=== PATIENT | female | born 1945 | race Caucasian/White ===

== ENCOUNTER 2017-08-20 05:49 | Emergency (ER) | payer MEDICARE, BC ==
[2017-08-20 05:59] VITALS: BP 136/86
--- NOTE | 2017-08-20 06:27 | EDM.PDOC ---
ED HPI GENERAL MEDICAL PROBLEM - General Chief Complaint: ENT Problem Stated Complaint: nose bleed Time Seen by Provider: 08/20/17 06:05 Source of Information: Reports: Patient History Limitations: Reports: No Limitations - History of Present Illness INITIAL COMMENTS - FREE TEXT/NARRATIVE: States that her INR has been high for several days and was into Dr. Trotter and had meds changed. This evening about 9 pm she started having a left sided Onset Date: 08/19/17 Onset Time: 21:00 Location: Reports: Other (left nare) Nose Pain Score (Numeric/FACES): 4 - Related Data Allergies Allergy/AdvReac Type Severity Reaction Status Date / Time celecoxib [From Celebrex] Allergy Hives Verified 08/20/17 05:50 Home Meds: Home Meds Aspirin [Ecotrin] 81 mg PO DAILY 12/02/15 [History] Cholecalciferol (Vitamin D3) [Vitamin D3] 3,000 unit PO DAILY 12/02/15 [History] Citalopram Hydrobromide [Citalopram HBr] 20 mg PO DAILY 12/02/15 [History] Digoxin [Digox] 125 mcg PO DAILY 12/02/15 [History] Ferrous Sulfate 1 tab PO DAILY 12/02/15 [History] Fish Oil/[place]-3 Fatty Acids [Fish Oil 1,000 MG] 1,000 mg PO BEDTIME 12/02/15 [ History] Furosemide 80 mg PO BID 12/02/15 [History] Insulin Detemir [Levemir] 10 units SUBCUT BEDTIME 12/02/15 [History] Isosorbide Mononitrate [Isosorbide Mononitrate ER] 30 mg PO DAILY 12/02/15 [ History] Levothyroxine Sodium [Synthroid] 175 mcg PO DAILY 12/02/15 [History] Lisinopril [Zestril] 20 mg PO BID 12/02/15 [History] Lovastatin 20 mg PO DAILY 12/02/15 [History] Magnesium 400 mg PO DAILY 12/02/15 [History] Multivit-Min/FA/Lycopene/Lut [Centrum Silver Tablet] 1 tab PO DAILY 12/02/15 [ History] Vitamin B Complex 1 tab PO DAILY 12/02/15 [History] Warfarin [Coumadin] 5 mg PO MOWEFR 12/02/15 [History] ALPRAZolam [Xanax] 0.25 mg PO BID PRN 08/20/17 [History] Warfarin Sodium 2.5 mg PO SUTUTHSA 08/20/17 [History] Past Medical History HEENT History: Reports: Cataract Cardiovascular History: Reports: Afib, Heart Failure, High Cholesterol, Hypertension, Pacemaker Other Cardiovascular History: says she had a pacemaker inserted about 4 years ago; was supposed to have hip surgery, but had to "work on her heart." Knew she had a leaky valve, time to get that "fixed." Since surgery, incision healing, some incision pain when coughing; had collapsed lung right after surgery; has lost weight this year; is tired walking around the house; appetit OK; saw Dr. Trotter on 01-31-16 and 02-06 for followup; said she has a cough, clear or yellow sputum, had this before surgery Respiratory History: Reports: Asthma, SOB Gastrointestinal History: Reports: Chronic Constipation, GERD Genitourinary History: Reports: Other (See Below) Other Genitourinary History: nocturia, fibrocystic breast disease Musculoskeletal History: Reports: Arthritis, Gout, RA, Other (See Below) Other Musculoskeletal History: history of bursitis to left knee and right hip, sacroilitis, osteopenia Neurological History: Reports: Vertigo Psychiatric History: Reports: Depression Endocrine/Metabolic History: Reports: Diabetes, Type II Other Endocrine/Metabolic History: says her A1C is 5.6, diabetes doing well. h/ o thyroid CA Hematologic History: Reports: Other (See Below) Other Hematologic History: vitamin d deficiency Dermatologic History: Reports: Other (See Below) Other Dermatologic History: atypical nevus - Past Surgical History Female Surgical History: Reports: Section, Hysterectomy Social & Family History - Tobacco Use Smoking Status *Q: Former Smoker - Recreational Drug Use Recreational Drug Use: No - Living Situation & Occupation Living situation: Reports: , with Spouse Occupation: Retired ED ROS ENT - Review of Systems Review Of Systems: See Below Constitutional: Reports: No Symptoms HEENT: Reports: Nosebleed Respiratory: Reports: No Symptoms Cardiovascular: Reports: No Symptoms GI/Abdominal: Reports: No Symptoms ED EXAM, ENT - Physical Exam Exam: See Below Exam Limited By: No Limitations General Appearance: Alert, WD/WN, No Apparent Distress Ears: Normal External Exam, Normal Canal, Normal TMs Nose: Active Bleeding (left nare. Some blood noted posterior pharynx. ) Mouth/Throat: Bleeding (from nare bleeding posteriorly) Head: Atraumatic Neck: Normal Inspection, Supple Respiratory/Chest: No Respiratory Distress, Lungs Clear Cardiovascular: No Edema GI/Abdominal: Normal Bowel Sounds, Soft, Non-Tender Course - Vital Signs Last Recorded V/S: Last Vital Signs Temp 96.9 F 08/20/17 05:57 Pulse 87 08/20/17 05:57 Resp 20 08/20/17 05:57 BP 136/86 08/20/17 05:57 Pulse Ox 98 08/20/17 05:57 - Orders/Labs/Meds Labs: Laboratory Tests 08/20/17 08/20/17 Range/Units 06:25 06:25 WBC 8.7 (5.0-10.0) 10^3/uL RBC 4.26 (4.00-5.50) 10^6/uL Hgb 13.6 (12.0-16.0) g/dL Hct 41.1 (37.0-47.0) % MCV 96.5 H (82.0-94.0) fL MCH 31.9 (27.0-32.0) pg MCHC 33.1 (33.0-38.0) g/dL RDW Coeff of Viky 13.9 (11.0-15.0) % Plt Count 279 (150-400) 10^3/uL Neut % (Auto) 63.3 (35-85) % Lymph % (Auto) 28.1 (10-55) % [place] % (Auto) 5.8 (0-16) % Eos % (Auto) 2.6 (0-5) % Baso % (Auto) 0.2 (0-3) % Neut # (Auto) 5.52 (1.80-7.00) 10^3/uL Lymph # (Auto) 2.46 (1.00-4.80) 10^3/uL [place] # (Auto) 0.51 (0.00-0.80) 10^3/uL Eos # (Auto) 0.23 (0.00-0.45) 10^3/uL Baso # (Auto) 0.02 10^3/uL PT 24.8 H (9.7-12.3) SEC INR 2.56 H (0.92-1.18) Meds: Medications Discontinued Medications Generic Name Dose Route Start Last Admin Trade Name Nii PRN Reason Stop Dose Admin Oxymetazoline HCl 1 ml 08/20/17 08:02 08/20/17 08:06 Afrin Original 0.05% Nasal [place] JANENE 08/20/17 08:03 1 ml ONETIME ONE Administration - Re-Assessments/Exams Free Text/Narrative Re-Assessment/Exam: 08/20/17 06:28 Nasal tampon inserted into the left nare without any difficulty. 08/20/17 07:20 Nasal tampon removed as it continues to bleed through. Left nare sprayed with afrin and then 2 ml of adrenal sprayed into the left nostril. 1 inch packing inserted as tight as possible. Will continue to monitor. 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 Can make appt with Dr Trotter for Wednesday to have removed. Return sooner if bleeding returns. - Problem List & Annotations (1) Epistaxis SNOMED Code(s): 442781432 Code(s): R04.0 - EPISTAXIS Status: Acute Priority: High (2) Hypercoagulability due to heart valve disorder SNOMED Code(s): 10608701, 80168819 Code(s): D68.69 - OTHER THROMBOPHILIA Status: Acute Priority: High - Problem List Review Problem List Initiated/Reviewed/Updated: Yes
[2017-08-20] MEDS ORDERED: Oxymetazoline 0.05% Nasal Spray 15 ML Bottle NAS ONE (08:02)
== END 2017-08-20 08:18 | disposition home or self-care (01) ==
LOC: CC.ED 05:49
DX: R04.0 Epistaxis (principal); I38 Endocarditis, valve unspecified; D68.69 Other thrombophilia; I11.0 Hypertensive heart disease with heart failure; E78.00 Pure hypercholesterolemia, unspecified; I50.9 Heart failure, unspecified; E11.9 Type 2 diabetes mellitus without complications; Z88.8 Allergy status to other drugs, medicaments and biological substances; Z79.82 Long term (current) use of aspirin; Z79.899 Other long term (current) drug therapy; Z79.4 Long term (current) use of insulin; Z87.891 Personal history of nicotine dependence
CPT/HCPCS: 36415; 85025; 85610; 99283

== ENCOUNTER 2018-08-31 01:20 | Emergency (ER) | payer MEDICARE, BC ==
[2018-08-31 01:51] VITALS: BP 131/86
--- NOTE | 2018-08-31 02:27 | EDM.PDOC ---
ED HPI GENERAL MEDICAL PROBLEM - General Chief Complaint: Respiratory Problem Stated Complaint: asthma Time Seen by Provider: 08/31/18 02:04 Source of Information: Reports: Patient History Limitations: Reports: No Limitations - History of Present Illness INITIAL COMMENTS - FREE TEXT/NARRATIVE: Paulette is a 73 yr old female who presents to the ED via private vehicle with complaints of shortness of breath. States she was laying in bed around 11:30 this evening when she states it felt like she couldn't get any air. She denied any chest pain or palpitations in her chest. Admits it lasted until she got to [place] but has since subsided. She states this happened to her about a week ago and was seen in the clinic by Dina Benjamin PA-C who is her primary provider. Dina set her up with Dr. Townsend, prop setter, in [place] who told her she doesn' t think it is her heart. She states she wore a Holter monitor for 24 hours and mailed it back but hasn't found out any results of it. She admits she is on Coumadin for atrial fibrillation, valve replacement with history of bypass and a pacemaker as well. She was recently started on Xanax for anxiety. Currently she denies any symptoms. States she has a history of asthma and used to use an inhaler but hasn't for years. Has never been a smoker, tried it for a couple months at the age of 22 but quit d/t cost. Onset Date: 08/30/18 Onset Time: 23:30 Duration: Resolved Prior to Arrival Location: Reports: Chest, Generalized - Related Data Allergies Allergy/AdvReac Type Severity Reaction Status Date / Time celecoxib [From Celebrex] Allergy Hives Verified 08/31/18 01:31 Home Meds: Home Meds Aspirin [Ecotrin] 81 mg PO DAILY 12/02/15 [History] Cholecalciferol (Vitamin D3) [Vitamin D3] 3,000 unit PO DAILY 12/02/15 [History] Citalopram Hydrobromide [Citalopram HBr] 20 mg PO DAILY 12/02/15 [History] Digoxin [Digox] 125 mcg PO DAILY 12/02/15 [History] Ferrous Sulfate 1 tab PO DAILY 12/02/15 [History] Fish Oil/[place]-3 Fatty Acids [Fish Oil 1,000 MG] 2,000 mg PO BEDTIME 12/02/15 [ History] Furosemide 80 mg PO DAILY 12/02/15 [History] Insulin Detemir [Levemir] 10 units SUBCUT BEDTIME 12/02/15 [History] Isosorbide Mononitrate [Isosorbide Mononitrate ER] 30 mg PO DAILY 12/02/15 [ History] Levothyroxine Sodium [Synthroid] 175 mcg PO DAILY 12/02/15 [History] Lisinopril [Zestril] 20 mg PO BID 12/02/15 [History] Lovastatin 20 mg PO DAILY 12/02/15 [History] Magnesium 400 mg PO DAILY 12/02/15 [History] Multivit-Min/FA/Lycopene/Lut [Centrum Silver Tablet] 1 tab PO DAILY 12/02/15 [ History] Vitamin B Complex 1 tab PO DAILY 12/02/15 [History] Warfarin [Coumadin] 5 mg PO BECK 12/02/15 [History] ALPRAZolam [Xanax] 0.25 mg PO BID PRN 08/20/17 [History] Warfarin Sodium 7.5 mg PO MOTUWETHFRSA 08/20/17 [History] Past Medical History HEENT History: Reports: Cataract Cardiovascular History: Reports: Afib, Bypass, Heart Failure, Heart Valve Replacement, High Cholesterol, Hypertension, Pacemaker Other Cardiovascular History: says she had a pacemaker inserted about 4 years ago; was supposed to have hip surgery, but had to "work on her heart." Knew she had a leaky valve, time to get that "fixed." Since surgery, incision healing, some incision pain when coughing; had collapsed lung right after surgery; has lost weight this year; is tired walking around the house; appetit OK; saw Dr. 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: Musculoskeletal History: Reports: Arthritis, Gout, RA, Other (See Below) Other Musculoskeletal History: history of bursitis to left knee and right hip, sacroilitis, osteopenia Neurological History: Reports: Vertigo Psychiatric History: Reports: Depression Endocrine/Metabolic History: Reports: Diabetes, Type II, Other (See Below) Other Endocrine/Metabolic History: THYROID CA; THYROID REMOVED Hematologic History: Reports: Other (See Below) Other Hematologic History: vitamin d deficiency Oncologic (Cancer) History: Reports: Thyroid Dermatologic History: Reports: Other (See Below) Other Dermatologic History: atypical nevus - Past Surgical History Cardiovascular Surgical History: Reports: Coronary Artery Bypass, Pacer, Valve Replacement GI Surgical History: Reports: Appendectomy, Cholecystectomy Female Surgical History: Reports: Section, Hysterectomy Musculoskeletal Surgical History: Reports: Hip Replacement Other Musculoskeletal Surgeries/Procedures:: r) HIP Oncologic Surgical History: Reports: None Social & Family History - Family History Family Medical History: Noncontributory - Tobacco Use Smoking Status *Q: Former Smoker Used Tobacco, but Quit: Yes Month/Year Tobacco Last Used: 40 YEARS - Caffeine Use Caffeine Use: Reports: Coffee - Recreational Drug Use Recreational Drug Use: No - Living Situation & Occupation Living situation: Reports: , with Spouse Occupation: Retired ED ROS GENERAL - Review of Systems Review Of Systems: See Below Constitutional: Denies: Fever, Chills, Weakness HEENT: Reports: No Symptoms Respiratory: Reports: Shortness of Breath (resolved). Denies: Wheezing, Pleuritic Chest Pain, Cough Cardiovascular: Reports: Edema (right ankle from prior ankle fracture), Lightheadedness, Orthopnea. Denies: Chest Pain, Dyspnea on Exertion, Palpitations GI/Abdominal: Reports: No Symptoms : Reports: No Symptoms Musculoskeletal: Reports: No Symptoms Skin: Reports: No Symptoms Neurological: Reports: No Symptoms Psychiatric: Reports: Anxiety Hematologic/Lymphatic: Reports: Easy Bleeding (on Coumadin) ED EXAM, GENERAL - Physical Exam Exam: See Below Exam Limited By: No Limitations General Appearance: Alert, No Apparent Distress (sitting comfortably having normal conversation.) Ears: Normal External Exam, Normal Canal, Hearing Grossly Normal, Normal TMs Nose: Normal Inspection, Normal Mucosa, No Blood Throat/Mouth: Normal Inspection, Normal Lips, Normal Gums, Normal Oropharynx, Normal Voice, No Airway Compromise Head: Atraumatic, Normocephalic Neck: Normal Inspection, Supple Respiratory/Chest: No Respiratory Distress, Lungs Clear, No Accessory Muscle Use , Chest Non-Tender Cardiovascular: No Murmur, Irregularly Irregular Peripheral Pulses: 2+: Dorsalis Pedis (L), Dorsalis Pedis (R) GI/Abdominal: Normal Bowel Sounds, Soft, Non-Tender, No Distention, No Mass Extremities: Pedal Edema (trace pitting right lower extremity, pt states it has been that way since ankle fracture) Neurological: Alert, Oriented, Normal Cognition, No Motor/Sensory Deficits Psychiatric: Normal Affect, Normal Mood Skin Exam: Warm, Dry, Intact, Normal Color, No Rash EKG INTERPRETATION EKG Date: 08/31/18 Rhythm: A-Fib Rate (Beats/Min): 96 (paced) ST-T: Normal Comparison: NA - No Prior EKG Course - Vital Signs Last Recorded V/S: Last Vital Signs Temp 97.1 F 08/31/18 01:29 Pulse 87 08/31/18 02:38 Resp 20 08/31/18 02:38 BP 131/86 08/31/18 01:51 Pulse Ox 96 08/31/18 02:38 - Orders/Labs/Meds Orders: Active Orders 24 hr Category Date Time Status EKG Documentation Completion [RC] STAT Care 08/31/18 01:24 Active Chest 2V [CR] Stat Exams 08/31/18 01:49 Ordered Labs: Laboratory Tests 08/31/18 08/31/18 08/31/18 Range/Units 01:58 01:58 01:58 WBC 6.3 (5.0-10.0) 10^3/uL RBC 4.28 (4.00-5.50) 10^6/uL Hgb 14.4 (12.0-16.0) g/dL Hct 42.5 (37.0-47.0) % MCV 99.3 H (82.0-94.0) fL MCH 33.6 H (27.0-32.0) pg MCHC 33.9 (33.0-38.0) g/dL RDW Coeff of [place] 13.9 (11.0-15.0) % Plt Count 291 (150-400) 10^3/uL Neut % (Auto) 53.8 (35-85) % Lymph % (Auto) 36.4 (10-55) % [place] % (Auto) 6.2 (0-16) % Eos % (Auto) 3.3 (0-5) % Baso % (Auto) 0.3 (0-3) % Neut # (Auto) 3.37 (1.80-7.00) 10^3/uL Lymph # (Auto) 2.28 (1.00-4.80) 10^3/uL [place] # (Auto) 0.39 (0.00-0.80) 10^3/uL Eos # (Auto) 0.21 (0.00-0.45) 10^3/uL Baso # (Auto) 0.02 10^3/uL PT 33.5 H (9.7-12.3) SEC INR 3.49 H (0.92-1.18) D-Dimer, Quantitative 0.88 H (0.00-0.50) Sodium 144 (136-145) mEq/L Potassium 3.9 (3.5-5.0) mEq/L Chloride 107 H (98-106) mEq/L Carbon Dioxide 27 (21-32) mmol/L BUN 29 H (7-18) mg/dL Creatinine 1.2 H (0.6-1.0) mg/dL Est Cr Clr Drug Dosing 39.67 mL/min Estimated GFR (MDRD) 44 L (>=60) mL/min Glucose 119 H (75-99) mg/dL Calcium 9.6 (8.4-10.1) mg/dL Total Bilirubin 0.8 (0.0-1.0) mg/dL AST 31 (15-37) U/L ALT 34 (12-78) U/L Alkaline Phosphatase 68 (46-116) U/L Creatine Kinase 63 (21-215) U/L Troponin I 0.065 H (0.00-0.06) ng/mL C-Reactive Protein 0.2 (0.2-0.8) mg/dL Total Protein 6.2 L (6.4-8.2) g/dL Albumin 3.3 L (3.4-5.0) g/dL Departure - Departure Time of Disposition: 03:08 Disposition: Home, Self-Care 01 Clinical Impression: Shortness of breath at rest, Anticoagulation goal of INR 2.5 to 3.5 Congestive heart failure Qualifiers: Heart failure type: unspecified Heart failure chronicity: unspecified Qualified Code(s): I50.9 - Heart failure, unspecified - Discharge Information Instructions: Shortness of Breath, Adult, [id number] Forms: ED Department Discharge Additional Instructions: 1) Recommend sleeping with bed slightly elevated. 2) If shortness of breath returns or any concerns at all, recommend reevaluation and returning to the ER. 3) May call with any questions or concerns to [phone]. 4) Recommend follow up in clinic with Dina Benjamin tomorrow or afternoon for recheck... Call [phone] to schedule appointment. 5) Continue taking all medications as you normally would. - Problem List & Annotations (1) Anticoagulation goal of INR 2.5 to 3.5 SNOMED Code(s): 61301621 Code(s): Z51.81 - ENCOUNTER FOR THERAPEUTIC DRUG LEVEL MONITORING; Z79.01 - CARE HOME (CURRENT) USE OF ANTICOAGULANTS Status: Acute Current Visit: Yes (2) Congestive heart failure SNOMED Code(s): 67157911 Code(s): I50.9 - HEART FAILURE, UNSPECIFIED Status: Acute Current Visit: Yes Qualifiers: Heart failure type: unspecified Heart failure chronicity: unspecified Qualified Code(s): I50.9 - Heart failure, unspecified (3) Shortness of breath at rest SNOMED Code(s): 145589255 Code(s): R06.02 - SHORTNESS OF BREATH Status: Resolved Current Visit: Yes - My Orders Last 24 Hours: My Active Orders 08/31/18 01:24 EKG Documentation Completion [RC] STAT 08/31/18 01:49 Chest 2V [CR] Stat - Assessment/Plan Last 24 Hours: My Active Orders 08/31/18 01:24 EKG Documentation Completion [RC] STAT 08/31/18 01:49 Chest 2V [CR] Stat Plan: Chest x-ray showed enlarged heart and compared to prior from 2016 and appears to be comparable. EKG showed atrial fibrillation. Labs showed mildly elevated d- dimer at 0.88 with last done in 2017 and was 0.67 at that time. Troponoin 0.065. INR is therapeutic at 3.49. I discussed into detail asthma, which I explained is not likely as lungs are clear, slightly diminished in left lower lobe. I explained to both Paulette and her son, Helio, that it appears she does have heart failure, which was evident back in 2016 as well, likely chronic. I discussed mildly elevated d-dimer with an INR of 3.49. Likely not a PE; however , unable to determine without CTA of the chest. After long discussion with both it was decided to not undergo the CTA of the chest as it is likely nothing else would be done as she is already on anticoagulation and therapeutic. Offered to Paulette and her son to keep her in house under observation overnight with repeat cardiac enzymes, pro-BNP in the morning. She elected to go home instead. She verbalized understanding of all the risks as well as her son. We will discharge home at this time. I did advise if shortness of breath returns or has any chest discomfort, recommended returning immediately to ED. Will have her follow up with Dina Benjamin to discuss heart failure. Paulette was ambulated and didn't appear to be in any distress while in ED.
== END 2018-08-31 03:30 | disposition home or self-care (01) ==
LOC: CC.ED 01:20
DX: I11.0 Hypertensive heart disease with heart failure (principal); I50.9 Heart failure, unspecified; E11.9 Type 2 diabetes mellitus without complications; Z88.8 Allergy status to other drugs, medicaments and biological substances; Z79.82 Long term (current) use of aspirin; Z79.899 Other long term (current) drug therapy; Z87.891 Personal history of nicotine dependence
CPT/HCPCS: 36415; 71046; 80053; 82550; 84484; 85025; 85379; 85610; 86140; 93005; 99285-25

== ENCOUNTER 2019-03-26 09:05 | Inpatient (IN) | payer MEDICARE, BC ==
--- NOTE | 2019-03-26 09:40 | EDM.PDOC ---
ED HPI GENERAL MEDICAL PROBLEM - General Chief Complaint: Respiratory Problem Stated Complaint: TROUBLE BREATHING Time Seen by Provider: 03/26/19 09:23 Source of Information: Reports: Patient History Limitations: Reports: No Limitations - History of Present Illness INITIAL COMMENTS - FREE TEXT/NARRATIVE: This patient is a 74 year old female that presents to the ER. Patient report that for the past 2 days she has had an increase in shortness of breath and BLE edema. Patient reports that she has a history of CHF. Patient reports that she was seen in clinic on Wednesday and was recommended admission but patient refused. Patient reports that since yesterday she has been getting on and off sharp chest pain upper left chest. She reports it last a few seconds, it began yesterday. She reports she had pain when she arrived, but is currently pain free 0/10. Patient reports she always sleeps in a recliner at night. Onset Date: 03/24/19 Duration: Day(s): (2) Severity: Moderate Improves with: Reports: None Worsens with: Reports: None Associated Symptoms: Reports: Chest Pain, Cough, Shortness of Breath. Denies: cough w sputum, Diaphoresis, Fever/Chills, Headaches, Loss of Appetite, Malaise , Nausea/Vomiting, Rash, Seizure, Syncope, Weakness Left Chest Pain Score (Numeric/FACES): 9 - Related Data Allergies Allergy/AdvReac Type Severity Reaction Status Date / Time celecoxib [From Celebrex] Allergy Hives Verified 09/08/18 08:55 Home Meds: Home Meds Aspirin [Ecotrin EC] 81 mg PO DAILY 12/02/15 [History] Cholecalciferol (Vitamin D3) [Vitamin D3] 3,000 unit PO DAILY 12/02/15 [History] Citalopram Hydrobromide [Citalopram HBr] 40 mg PO DAILY 12/02/15 [History] Ferrous Sulfate 1 tab PO DAILY 12/02/15 [History] Fish Oil/[place]-3 Fatty Acids [Fish Oil 1,000 MG] 2,000 mg PO BEDTIME 12/02/15 [ History] Furosemide 80 mg PO QAM 12/02/15 [History] Levothyroxine Sodium [Synthroid] 200 mcg PO DAILY 12/02/15 [History] Lisinopril [Zestril] 20 mg PO DAILY 12/02/15 [History] Lovastatin 20 mg PO DAILY 12/02/15 [History] Magnesium 500 mg PO DAILY 12/02/15 [History] Multivit-Min/FA/Lycopene/Lut [Centrum Silver Tablet] 1 tab PO DAILY 12/02/15 [ History] Vitamin B Complex 1 tab PO DAILY 12/02/15 [History] Warfarin [Coumadin] 5 mg PO SUTUTHSA 12/02/15 [History] ALPRAZolam [Xanax] 0.25 mg PO BID PRN 08/20/17 [History] Warfarin Sodium 7.5 mg PO MOWEFR 08/20/17 [History] Acetaminophen [Tylenol Extra Strength] 1 mg PO ASDIRECTED 09/08/18 [History] Metoprolol Succinate 50 mg PO DAILY 09/08/18 [History] Furosemide 40 mg PO 1700 03/26/19 [History] Past Medical History HEENT History: Reports: Cataract Cardiovascular History: Reports: Afib, Bypass, Heart Failure, Heart Valve Replacement, High Cholesterol, Hypertension, Pacemaker Other Cardiovascular History: says she had a pacemaker inserted about 4 years ago; was supposed to have hip surgery, but had to "work on her heart." Knew she had a leaky valve, time to get that "fixed." Since surgery, incision healing, some incision pain when coughing; had collapsed lung right after surgery; has lost weight this year; is tired walking around the house; appetit OK; saw Dr. Trotter on 01-31-16 and 02-06 for followup; said she has a cough, clear or yellow sputum, had this before surgery Respiratory History: Reports: Asthma, SOB Gastrointestinal History: Reports: Chronic Constipation, GERD Genitourinary History: Reports: Other (See Below) Other Genitourinary History: nocturia, fibrocystic breast disease [employer] History: Reports: Musculoskeletal History: Reports: Arthritis, Gout, RA, Other (See Below) Other Musculoskeletal History: history of bursitis to left knee and right hip, sacroilitis, osteopenia Neurological History: Reports: Vertigo Psychiatric History: Reports: Depression Endocrine/Metabolic History: Reports: Diabetes, Type II, Other (See Below) Other Endocrine/Metabolic History: THYROID CA; THYROID REMOVED Hematologic History: Reports: Other (See Below) Other Hematologic History: vitamin d deficiency Oncologic (Cancer) History: Reports: Thyroid Dermatologic History: Reports: Other (See Below) Other Dermatologic History: atypical nevus - Past Surgical History Cardiovascular Surgical History: Reports: Coronary Artery Bypass, Pacer, Valve Replacement GI Surgical History: Reports: Appendectomy, Cholecystectomy Female Surgical History: Reports: Section, Hysterectomy Musculoskeletal Surgical History: Reports: Hip Replacement Other Musculoskeletal Surgeries/Procedures:: r) HIP Oncologic Surgical History: Reports: None Social & Family History - Family History Family Medical History: Noncontributory - Caffeine Use Caffeine Use: Reports: Coffee - Living Situation & Occupation Living situation: Reports: , with Spouse Occupation: Retired ED ROS GENERAL - Review of Systems Review Of Systems: See Below Constitutional: Reports: No Symptoms HEENT: Reports: No Symptoms Respiratory: Reports: Shortness of Breath, Cough. Denies: Wheezing, Pleuritic Chest Pain, Sputum, Hemoptysis Cardiovascular: Reports: Chest Pain, Edema Endocrine: Reports: No Symptoms GI/Abdominal: Denies: Abdominal Pain, Diarrhea, Nausea, Vomiting : Reports: No Symptoms Musculoskeletal: Reports: No Symptoms Skin: Reports: No Symptoms Neurological: Reports: No Symptoms Psychiatric: Reports: No Symptoms Hematologic/Lymphatic: Reports: No Symptoms Immunologic: Reports: No Symptoms ED EXAM, GENERAL - Physical Exam Exam: See Below Exam Limited By: No Limitations General Appearance: Alert, WD/WN, No Apparent Distress, Anxious, Obese Eye Exam: Bilateral Eye: Normal Inspection, PERRL Ears: Normal External Exam, Normal Canal, Hearing Grossly Normal, Normal TMs Ear Exam: Bilateral Ear: Auricle Normal, Canal Normal, TM normal Nose: Normal Inspection, Normal Mucosa, No Blood Throat/Mouth: Normal Inspection, Normal Lips, Normal Teeth, Normal Gums, Normal Oropharynx, Normal Voice, No Airway Compromise Head: Atraumatic, Normocephalic Neck: Normal Inspection, Supple, Non-Tender, Full Range of Motion Respiratory/Chest: No Respiratory Distress, Lungs Clear, Normal Breath Sounds, No Accessory Muscle Use, Chest Non-Tender Cardiovascular: Normal Peripheral Pulses, Regular Rate, Rhythm, No JVD, No Murmur, No Rub, Other (Pacemaker) Peripheral Pulses: 2+: Radial (L), Radial (R), Posterior Tibial (L), Posterior Tibial (R), Dorsalis Pedis (L), Dorsalis Pedis (R) GI/Abdominal: Normal Bowel Sounds, Soft, Non-Tender, No Abnormal Bruit (Female) Exam: Deferred Rectal (Female) Exam: Deferred Back Exam: Normal Inspection, Full Range of Motion Extremities: Normal Inspection, Normal Range of Motion, Non-Tender, Normal Capillary Refill, Pedal Edema (+3 BLE) Neurological: Alert, Oriented, Normal Cognition, No Motor/Sensory Deficits Psychiatric: Normal Affect, Normal Mood Skin Exam: Warm, Dry, Normal Color, No Rash, Wound/Incision (BLE small scrapes and wounds from dogs per patient. No surrounding redness, drainage, or evidence of infection.) EKG INTERPRETATION EKG Date: 03/26/19 Time: 10:15 Rate (Beats/Min): 92 Comparison: No Change EKG Interpretation Comments: PACED Course - Vital Signs Last Recorded V/S: Last Vital Signs Temp 98.5 F 03/26/19 09:06 Pulse 89 03/26/19 09:06 Resp 16 03/26/19 09:06 BP 102/73 03/26/19 09:06 Pulse Ox 95 03/26/19 09:06 - Orders/Labs/Meds Orders: Active Orders 24 hr Category Date Time Status Chest 2V [CR] Stat Exams 03/26/19 09:30 Taken Labs: Laboratory Tests 03/26/19 03/26/19 03/26/19 Range/Units 09:25 09:25 09:25 WBC 5.2 (5.0-10.0) 10^3/uL RBC 3.84 L (4.00-5.50) 10^6/uL Hgb 13.1 (12.0-16.0) g/dL Hct 39.6 (37.0-47.0) % MCV 103.1 H (82.0-94.0) fL MCH 34.1 H (27.0-32.0) pg MCHC 33.1 (33.0-38.0) g/dL RDW Coeff of Viky 16.5 H (11.0-15.0) % Plt Count 253 (150-400) 10^3/uL Neut % (Auto) 64.1 (35-85) % Lymph % (Auto) 23.9 (10-55) % [place] % (Auto) 7.3 (0-16) % Eos % (Auto) 4.1 (0-5) % Baso % (Auto) 0.6 (0-3) % Neut # (Auto) 3.32 (1.80-7.00) 10^3/uL Lymph # (Auto) 1.24 (1.00-4.80) 10^3/uL [place] # (Auto) 0.38 (0.00-0.80) 10^3/uL Eos # (Auto) 0.21 (0.00-0.45) 10^3/uL Baso # (Auto) 0.03 10^3/uL PT 16.9 H (9.7-12.3) SEC INR 1.69 H (0.92-1.18) Sodium 142 (136-145) mEq/L Potassium 4.5 (3.5-5.0) mEq/L Chloride 104 (98-106) mEq/L Carbon Dioxide 29 (21-32) mmol/L BUN 32 H (7-18) mg/dL Creatinine 1.6 H (0.6-1.0) mg/dL Est Cr Clr Drug Dosing TNP Estimated GFR (MDRD) 32 L (>=60) mL/min Glucose 108 H (75-99) mg/dL Calcium 9.3 (8.4-10.1) mg/dL Total Bilirubin 1.1 H (0.0-1.0) mg/dL AST 30 (15-37) U/L ALT 21 (12-78) U/L Alkaline Phosphatase 71 (46-116) U/L Lactate Dehydrogenase 244 H (100-190) U/L Creatine Kinase 53 (21-215) U/L Troponin I 0.111 H (0.00-0.06) ng/mL NT-Pro-B Natriuret Pep 97014 H (0-1000) pg/mL Total Protein 6.9 (6.4-8.2) g/dL Albumin 3.2 L (3.4-5.0) g/dL 03/26/19 Range/Units 12:10 WBC (5.0-10.0) 10^3/uL RBC (4.00-5.50) 10^6/uL Hgb (12.0-16.0) g/dL Hct (37.0-47.0) % MCV (82.0-94.0) fL MCH (27.0-32.0) pg MCHC (33.0-38.0) g/dL RDW Coeff of Viky (11.0-15.0) % Plt Count (150-400) 10^3/uL Neut % (Auto) (35-85) % Lymph % (Auto) (10-55) % [place] % (Auto) (0-16) % Eos % (Auto) (0-5) % Baso % (Auto) (0-3) % Neut # (Auto) (1.80-7.00) 10^3/uL Lymph # (Auto) (1.00-4.80) 10^3/uL [place] # (Auto) (0.00-0.80) 10^3/uL Eos # (Auto) (0.00-0.45) 10^3/uL Baso # (Auto) 10^3/uL PT (9.7-12.3) SEC INR (0.92-1.18) Sodium (136-145) mEq/L Potassium (3.5-5.0) mEq/L Chloride (98-106) mEq/L Carbon Dioxide (21-32) mmol/L BUN (7-18) mg/dL Creatinine (0.6-1.0) mg/dL Est Cr Clr Drug Dosing Estimated GFR (MDRD) (>=60) mL/min Glucose (75-99) mg/dL Calcium (8.4-10.1) mg/dL Total Bilirubin (0.0-1.0) mg/dL AST (15-37) U/L ALT (12-78) U/L Alkaline Phosphatase (46-116) U/L Lactate Dehydrogenase (100-190) U/L Creatine Kinase (21-215) U/L Troponin I 0.105 H (0.00-0.06) ng/mL NT-Pro-B Natriuret Pep (0-1000) pg/mL Total Protein (6.4-8.2) g/dL Albumin (3.4-5.0) g/dL Meds: Medications Discontinued Medications Generic Name Dose Route Start Last Admin Trade Name Freq PRN Reason Stop Dose Admin Furosemide 40 mg 03/26/19 10:13 03/26/19 10:27 Lasix IVPUSH 03/26/19 10:14 40 mg ONETIME ONE Administration - Radiology Interpretation Free Text/Narrative:: CXR: Read by me; Interstitual edema, cardiomegaly. pacemaker. - Re-Assessments/Exams Free Text/Narrative Re-Assessment/Exam: 03/26/19 10:03 Patient BNP is elevated. Her troponin is in indeterminant range. Will repeat a troponin in 3 hours to see if any rise. I believe her troponin is elevated due to her spike in CR. Her CR went from 1.3 Wednesday to 1.6 today. She currently is pain free. I will redraw repeat troponin. Will admit for CHF and renal insufficiency if no significant elevation in troponin. Departure - Departure Time of Disposition: 12:52 Disposition: Admitted As Inpatient 67 Condition: Fair Clinical Impression: Shortness of breath at rest Congestive heart failure Qualifiers: Heart failure type: unspecified Heart failure chronicity: unspecified Qualified Code(s): I50.9 - Heart failure, unspecified - Discharge Information *PRESCRIPTION DRUG MONITORING PROGRAM REVIEWED*: Not Applicable *COPY OF PRESCRIPTION DRUG MONITORING REPORT IN PATIENT DILIP: Not Applicable Forms: ED Department Discharge - My Orders Last 24 Hours: My Active Orders 03/26/19 09:30 Chest 2V [CR] Stat - Assessment/Plan Last 24 Hours: My Active Orders 03/26/19 09:30 Chest 2V [CR] Stat Plan: PLEASE SEE RN NOTE FOR PFSH.
[2019-03-26 09:49] LABS: CHLORIDE,CL 104 mEq/L (98-106); SODIUM,NA 142 mEq/L (136-145)
[2019-03-26] MEDS ORDERED: Furosemide 40 MG/4 ML VIAL IVPUSH ONE (10:13)
[2019-03-26] MEDS ORDERED: Morphine 2 MG/ML Syringe IVPUSH PRN (14:00)
[2019-03-26] MEDS ORDERED: ALPRAZolam 0.25 MG Tab PO PRN (14:00)
[2019-03-26] MEDS ORDERED: Acetaminophen 500 MG Tab PO SCH (14:00)
[2019-03-26] MEDS ORDERED: Sodium Chloride 0.9% 1,000 ML IV SCH (14:00)
[2019-03-26] MEDS ORDERED: Ondansetron 4 MG/2 ML SDV IV PRN (14:00)
[2019-03-26] MEDS: Warfarin 5 MG Tab PO SCH (15:08)
[2019-03-26] MEDS: Furosemide 40 MG/4 ML VIAL IVPUSH SCH (15:09)
[2019-03-26] MEDS ORDERED: FATTY ACIDS PO SCH (20:00)
[2019-03-26] MEDS ORDERED: [UNRECOGNIZED DRUG - OTHER] PO SCH (20:00)
[2019-03-26] MEDS ORDERED: OMEGA PO SCH (20:00)
[2019-03-26] MEDS ORDERED: FISH OIL PO SCH (20:00)
[2019-03-27] MEDS: Levothyroxine 100 MCG Tab PO SCH (06:34)
[2019-03-27] MEDS: Cholecalciferol (Vitamin D3) 25 MCG Tab PO SCH (08:04)
[2019-03-27] MEDS: Furosemide 40 MG/4 ML VIAL IVPUSH SCH ×2 (08:04→16:03)
[2019-03-27] MEDS: Vitamin B Complex Cap PO SCH (08:04)
[2019-03-27] MEDS: Ferrous Sulfate 324 MG Tab.EC PO SCH (08:05)
[2019-03-27] MEDS: Multivitamin Tab PO SCH (08:05)
[2019-03-27] MEDS: Lisinopril 20 MG Tab PO SCH (08:06)
[2019-03-27] MEDS: Metoprolol Succinate 25 MG Tab.ER PO SCH (08:06)
[2019-03-27] MEDS: Aspirin 81 MG Tab.EC PO SCH (08:06)
[2019-03-27] MEDS: Citalopram 10 MG Tab PO SCH (08:07)
[2019-03-27] MEDS ORDERED: Warfarin 5 MG Tab PO SCH (12:00)
--- NOTE | 2019-03-27 12:26 | PCM.PN ---
- General Info Date of Service: 03/27/19 Admission Dx/Problem (Free Text): CHF Exacerbation Functional Status: Reports: Pain Controlled, Tolerating Diet, Ambulating - Review of Systems General: Reports: Weakness, Fatigue HEENT: Denies: Ear Pain, Sinus Congestion, Rhinitis Pulmonary: Reports: Shortness of Breath. Denies: Cough Cardiovascular: Reports: Edema. Denies: Chest Pain, Lightheadedness Gastrointestinal: Denies: Abdominal Pain, Nausea, Vomiting Genitourinary: Reports: Frequency Musculoskeletal: Reports: Leg Pain Skin: Reports: Other (redness to legs) - Patient Data Vitals - Most Recent: Last Vital Signs Temp 97.2 F 03/27/19 08:00 Pulse 111 H 03/27/19 08:06 Resp 20 03/27/19 08:00 BP 116/72 03/27/19 08:06 Pulse Ox 98 03/27/19 08:00 Weight - Most Recent: 204 lb 2.369 oz I&O - Last 24 Hours: Intake & Output 03/26/19 03/27/19 03/27/19 22:59 06:59 14:59 Intake Total 350 500 900 Output Total 500 400 Balance 350 0 500 Lab Results Last 24 Hours: Laboratory Results - last 24 hr 03/26/19 03/27/19 03/27/19 Range/Units 12:10 06:50 06:50 WBC 5.2 (5.0-10.0) 10^3/uL RBC 3.85 L (4.00-5.50) 10^6/uL Hgb 12.9 (12.0-16.0) g/dL Hct 40.1 (37.0-47.0) % MCV 104.2 H (82.0-94.0) fL MCH 33.5 H (27.0-32.0) pg MCHC 32.2 L (33.0-38.0) g/dL RDW Coeff of Viky 16.4 H (11.0-15.0) % Plt Count 267 (150-400) 10^3/uL Neut % (Auto) 60.4 (35-85) % Lymph % (Auto) 26.3 (10-55) % [place] % (Auto) 8.3 (0-16) % Eos % (Auto) 4.6 (0-5) % Baso % (Auto) 0.4 (0-3) % Neut # (Auto) 3.13 (1.80-7.00) 10^3/uL Lymph # (Auto) 1.36 (1.00-4.80) 10^3/uL [place] # (Auto) 0.43 (0.00-0.80) 10^3/uL Eos # (Auto) 0.24 (0.00-0.45) 10^3/uL Baso # (Auto) 0.02 10^3/uL PT 16.6 H (9.7-12.3) SEC INR 1.66 H (0.92-1.18) Sodium (136-145) mEq/L Potassium (3.5-5.0) mEq/L Chloride (98-106) mEq/L Carbon Dioxide (21-32) mmol/L BUN (7-18) mg/dL Creatinine (0.6-1.0) mg/dL Est Cr Clr Drug Dosing mL/min Estimated GFR (MDRD) (>=60) mL/min Glucose (75-99) mg/dL Calcium (8.4-10.1) mg/dL Troponin I 0.105 H (0.00-0.06) ng/mL NT-Pro-B Natriuret Pep (0-1000) pg/mL 03/27/19 Range/Units 06:50 WBC (5.0-10.0) 10^3/uL RBC (4.00-5.50) 10^6/uL Hgb (12.0-16.0) g/dL Hct (37.0-47.0) % MCV (82.0-94.0) fL MCH (27.0-32.0) pg MCHC (33.0-38.0) g/dL RDW Coeff of Viky (11.0-15.0) % Plt Count (150-400) 10^3/uL Neut % (Auto) (35-85) % Lymph % (Auto) (10-55) % [place] % (Auto) (0-16) % Eos % (Auto) (0-5) % Baso % (Auto) (0-3) % Neut # (Auto) (1.80-7.00) 10^3/uL Lymph # (Auto) (1.00-4.80) 10^3/uL [place] # (Auto) (0.00-0.80) 10^3/uL Eos # (Auto) (0.00-0.45) 10^3/uL Baso # (Auto) 10^3/uL PT (9.7-12.3) SEC INR (0.92-1.18) Sodium 142 (136-145) mEq/L Potassium 4.1 (3.5-5.0) mEq/L Chloride 105 (98-106) mEq/L Carbon Dioxide 29 (21-32) mmol/L BUN 32 H (7-18) mg/dL Creatinine 1.3 H (0.6-1.0) mg/dL Est Cr Clr Drug Dosing 36.08 mL/min Estimated GFR (MDRD) 40 L (>=60) mL/min Glucose 105 H (75-99) mg/dL Calcium 9.2 (8.4-10.1) mg/dL Troponin I (0.00-0.06) ng/mL NT-Pro-B Natriuret Pep 39583 H (0-1000) pg/mL Med Orders - Current: Current Medications Alprazolam (Xanax) 0.25 mg PO BID PRN PRN Reason: Anxiety Aspirin (Halfprin) 81 mg PO DAILY [facility] Last Admin: 03/27/19 08:06 Dose: 81 mg Cholecalciferol (Vitamin D3) 75 mcg PO DAILY [facility] Last Admin: 03/27/19 08:04 Dose: 75 mcg Citalopram Hydrobromide (Celexa) 40 mg PO DAILY [facility] Last Admin: 03/27/19 08:07 Dose: 40 mg Ferrous Sulfate (Ferrous Sulfate) 324 mg PO DAILY [facility] Last Admin: 03/27/19 08:05 Dose: 324 mg Furosemide (Lasix) 40 mg IVPUSH BIDDIURETIC [facility] Last Admin: 03/27/19 08:04 Dose: 40 mg Levothyroxine Sodium (Synthroid) 200 mcg PO ACBRK [facility] Last Admin: 03/27/19 06:34 Dose: 200 mcg Lisinopril (Prinivil) 20 mg PO DAILY [facility] Last Admin: 03/27/19 08:06 Dose: 20 mg Magnesium Oxide (Magnesium Oxide) 500 mg PO DAILY [facility] Last Admin: 03/27/19 08:07 Dose: 500 mg Metoprolol Succinate (Toprol Xl) 50 mg PO DAILY [facility] Last Admin: 03/27/19 08:06 Dose: 50 mg Morphine Sulfate (Morphine) 2 mg IVPUSH Q2H PRN PRN Reason: Pain (severe 7-10) Multivitamins/Minerals/Vitamin C (Tab-A-Yarely) 1 tab PO DAILY [facility] Last Admin: 03/27/19 08:05 Dose: 1 tab Ondansetron HCl (Zofran) 4 mg IV Q6H PRN PRN Reason: Nausea/Vomiting Simvastatin (Zocor) 10 mg PO BEDTIME [facility] Vitamin B Complex (Vitamin B Complex) 1 each PO DAILY [facility] Last Admin: 03/27/19 08:04 Dose: 1 each Warfarin Sodium (Coumadin) 5 mg PO SuTuThSa@1200 [facility] Last Admin: 03/26/19 15:08 Dose: 5 mg Warfarin Sodium (Coumadin) 7.5 mg PO MoWeFr@1200 [facility] Discontinued Medications Acetaminophen (Tylenol Extra Strength) 1 mg PO ASDIRECTED [facility] Furosemide (Lasix) 40 mg IVPUSH ONETIME ONE Stop: 03/26/19 10:14 Last Admin: 03/26/19 10:27 Dose: 40 mg Sodium Chloride (Normal Saline) 1,000 mls @ 100 mls/hr IV ASDIRECTED [facility] Stop: 03/26/19 21:15 Last Admin: 03/26/19 15:09 Dose: 100 mls/hr Non-Formulary Medication (Fish Oil/[place]-3 Fatty Acids [Fish Oil 1,000 Mg]) 2, 000 mg PO BEDTIME [facility] - Exam General: Alert, Oriented HEENT: Mucous Membr. Moist/[place] Neck: Supple Lungs: Clear to Auscultation, Normal Respiratory Effort Cardiovascular: Regular Rate, Regular Rhythm, Murmurs GI/Abdominal Exam: Normal Bowel Sounds, Soft, Non-Tender Extremities: Pedal Edema (2+ pitting to lower extremities), Other (venous stasis changes to legs noted) - Problem List & Annotations (1) Congestive heart failure SNOMED Code(s): 66701925 Code(s): I50.9 - HEART FAILURE, UNSPECIFIED Status: Acute Priority: High Current Visit: Yes Qualifiers: Heart failure type: systolic Heart failure chronicity: acute on chronic Qualified Code(s): I50.23 - Acute on chronic systolic (congestive) heart failure Annotation/Comment:: Acute on chronic systolic heart failure, class II (2) Shortness of breath at rest SNOMED Code(s): 672199660 Code(s): R06.02 - SHORTNESS OF BREATH Status: Acute Priority: High Current Visit: Yes - Problem List Review Problem List Initiated/Reviewed/Updated: Yes - Assessment Assessment:: Acute on chronic systolic heart failure, class II - Plan Plan:: Patient is feeling better today, less short of breath. Tolerating activity today with minimal dyspnea. She does note that the edema is improvement. Down 1# today from admit. Lung sounds are diminished but clear. WBC 5.2, hemoglobin 12.9. INR 1.66 today. [place] [address]. Edema 2+ pitting to lower extremities. Venous stasis changes noted. Will obtain echocardiogram. Continue IV lasix. Is currently on isaak inhibitor. Probable discharge home tomorrow.
[2019-03-27] MEDS: Simvastatin 10 MG Tab PO SCH (19:34)
[2019-03-28] MEDS: Levothyroxine 100 MCG Tab PO SCH (06:39)
[2019-03-28] MEDS: Ferrous Sulfate 324 MG Tab.EC PO SCH (07:34)
[2019-03-28] MEDS: Citalopram 10 MG Tab PO SCH (07:34)
[2019-03-28] MEDS: Aspirin 81 MG Tab.EC PO SCH (07:34)
[2019-03-28] MEDS: Multivitamin Tab PO SCH (07:37)
[2019-03-28] MEDS: Lisinopril 20 MG Tab PO SCH (07:37)
[2019-03-28] MEDS: Vitamin B Complex Cap PO SCH (07:38)
[2019-03-28] MEDS: Cholecalciferol (Vitamin D3) 25 MCG Tab PO SCH (07:38)
[2019-03-28] MEDS: Metoprolol Succinate 25 MG Tab.ER PO SCH (07:38)
[2019-03-28] MEDS: Furosemide 40 MG/4 ML VIAL IVPUSH SCH ×3 (07:39→15:51)
[2019-03-28] MEDS: Warfarin 5 MG Tab PO SCH (11:48)
--- NOTE | 2019-03-28 12:03 | PCM.PN ---
- General Info Date of Service: 03/28/19 Admission Dx/Problem (Free Text): CHF Exacerbation Functional Status: Reports: Pain Controlled, Tolerating Diet, Ambulating - Review of Systems General: Denies: Weakness, Fatigue, Malaise HEENT: Reports: No Symptoms Pulmonary: Denies: Shortness of Breath, Cough Cardiovascular: Reports: Edema. Denies: Chest Pain, Lightheadedness Gastrointestinal: Denies: Abdominal Pain, Nausea, Vomiting Genitourinary: Reports: No Symptoms Musculoskeletal: Reports: No Symptoms Skin: Reports: No Symptoms Neurological: Reports: No Symptoms - Patient Data Vitals - Most Recent: Last Vital Signs Temp 96.4 F 03/28/19 08:00 Pulse 85 03/28/19 08:00 Resp 16 03/28/19 08:00 BP 103/73 03/28/19 08:00 Pulse Ox 99 03/28/19 08:00 Weight - Most Recent: 205 lb 7.533 oz I&O - Last 24 Hours: Intake & Output 03/27/19 03/28/19 03/28/19 22:59 06:59 14:59 Intake Total 700 350 Output Total 200 800 Balance 500 -450 Lab Results Last 24 Hours: Laboratory Results - last 24 hr 03/28/19 03/28/19 03/28/19 Range/Units 07:00 07:00 07:00 WBC 5.4 (5.0-10.0) 10^3/uL RBC 3.99 L (4.00-5.50) 10^6/uL Hgb 13.5 (12.0-16.0) g/dL Hct 41.2 (37.0-47.0) % MCV 103.3 H (82.0-94.0) fL MCH 33.8 H (27.0-32.0) pg MCHC 32.8 L (33.0-38.0) g/dL RDW Coeff of Viky 16.4 H (11.0-15.0) % Plt Count 279 (150-400) 10^3/uL Neut % (Auto) 63.5 (35-85) % Lymph % (Auto) 25.7 (10-55) % [place] % (Auto) 7.8 (0-16) % Eos % (Auto) 2.4 (0-5) % Baso % (Auto) 0.6 (0-3) % Neut # (Auto) 3.42 (1.80-7.00) 10^3/uL Lymph # (Auto) 1.38 (1.00-4.80) 10^3/uL [place] # (Auto) 0.42 (0.00-0.80) 10^3/uL Eos # (Auto) 0.13 (0.00-0.45) 10^3/uL Baso # (Auto) 0.03 10^3/uL PT 20.5 H (9.7-12.3) SEC INR 2.07 H (0.92-1.18) Sodium 140 (136-145) mEq/L Potassium 4.4 (3.5-5.0) mEq/L Chloride 104 (98-106) mEq/L Carbon Dioxide 28 (21-32) mmol/L BUN 37 H (7-18) mg/dL Creatinine 1.5 H (0.6-1.0) mg/dL Est Cr Clr Drug Dosing 31.27 mL/min Estimated GFR (MDRD) 34 L (>=60) mL/min Glucose 105 H (75-99) mg/dL Calcium 9.3 (8.4-10.1) mg/dL NT-Pro-B Natriuret Pep 91292 H (0-1000) pg/mL Med Orders - Current: Current Medications Alprazolam (Xanax) 0.25 mg PO BID PRN PRN Reason: Anxiety Aspirin (Halfprin) 81 mg PO DAILY [facility] Last Admin: 03/28/19 07:34 Dose: 81 mg Cholecalciferol (Vitamin D3) 75 mcg PO DAILY [facility] Last Admin: 03/28/19 07:38 Dose: 75 mcg Citalopram Hydrobromide (Celexa) 40 mg PO DAILY [facility] Last Admin: 03/28/19 07:34 Dose: 40 mg Ferrous Sulfate (Ferrous Sulfate) 324 mg PO DAILY [facility] Last Admin: 03/28/19 07:34 Dose: 324 mg Furosemide (Lasix) 40 mg IVPUSH BIDDIURETIC [facility] Last Admin: 03/28/19 07:39 Dose: 40 mg Levothyroxine Sodium (Synthroid) 200 mcg PO ACBRK [facility] Last Admin: 03/28/19 06:39 Dose: 200 mcg Lisinopril (Prinivil) 20 mg PO DAILY [facility] Last Admin: 03/28/19 07:37 Dose: 20 mg Magnesium Oxide (Magnesium Oxide) 500 mg PO DAILY [facility] Last Admin: 03/28/19 07:34 Dose: 500 mg Metoprolol Succinate (Toprol Xl) 50 mg PO DAILY [facility] Last Admin: 03/28/19 07:38 Dose: 50 mg Morphine Sulfate (Morphine) 2 mg IVPUSH Q2H PRN PRN Reason: Pain (severe 7-10) Multivitamins/Minerals/Vitamin C (Tab-A-Yarely) 1 tab PO DAILY [facility] Last Admin: 03/28/19 07:37 Dose: 1 tab Ondansetron HCl (Zofran) 4 mg IV Q6H PRN PRN Reason: Nausea/Vomiting Simvastatin (Zocor) 10 mg PO BEDTIME [facility] Last Admin: 03/27/19 19:34 Dose: 10 mg Vitamin B Complex (Vitamin B Complex) 1 each PO DAILY [facility] Last Admin: 03/28/19 07:38 Dose: 1 each Warfarin Sodium (Coumadin) 5 mg PO SuTuThSa@1200 [facility] Last Admin: 03/28/19 11:48 Dose: 5 mg Warfarin Sodium (Coumadin) 7.5 mg PO MoWeFr@1200 [facility] Last Admin: 03/27/19 13:06 Dose: 7.5 mg Discontinued Medications Acetaminophen (Tylenol Extra Strength) 1 mg PO ASDIRECTED [facility] Furosemide (Lasix) 40 mg IVPUSH ONETIME ONE Stop: 03/26/19 10:14 Last Admin: 03/26/19 10:27 Dose: 40 mg Sodium Chloride (Normal Saline) 1,000 mls @ 100 mls/hr IV ASDIRECTED [facility] Stop: 03/26/19 21:15 Last Admin: 03/26/19 15:09 Dose: 100 mls/hr Non-Formulary Medication (Fish Oil/[place]-3 Fatty Acids [Fish Oil 1,000 Mg]) 2, 000 mg PO BEDTIME [facility] - Exam General: Alert, Oriented HEENT: Mucous Membr. Moist/[place] Neck: Supple Lungs: Clear to Auscultation, Normal Respiratory Effort Cardiovascular: Regular Rate, Regular Rhythm, Murmurs GI/Abdominal Exam: Normal Bowel Sounds, Soft, Non-Tender Extremities: Pedal Edema (1-2+ edema. Venous stasis. Small open wounds are oozing clear serous drainage.) Wound/Incisions: Drainage - Problem List & Annotations (1) Congestive heart failure SNOMED Code(s): 01893684 Code(s): I50.9 - HEART FAILURE, UNSPECIFIED Status: Acute Priority: High Current Visit: Yes Qualifiers: Heart failure type: systolic Heart failure chronicity: acute on chronic Qualified Code(s): I50.23 - Acute on chronic systolic (congestive) heart failure Annotation/Comment:: Acute on chronic systolic heart failure, class II (2) Shortness of breath at rest SNOMED Code(s): 835897437 Code(s): R06.02 - SHORTNESS OF BREATH Status: Acute Priority: High Current Visit: Yes - Problem List Review Problem List Initiated/Reviewed/Updated: Yes - My Orders Last 24 Hours: My Active Orders 03/28/19 08:15 Echo Comp wo Cont [US] Routine 03/28/19 09:27 Consult to Dietary [Consult to Consumer Studies Professor] [CONS] Routine - Assessment Assessment:: Acute on chronic systolic heart failure, class II - Plan Plan:: Patient is feeling better today, less short of breath. Tolerating activity today with minimal dyspnea. She does note that the edema is improvement. Down 1# today from admit. Lung sounds are diminished but clear. WBC 5.2, hemoglobin 12.9. INR 1.66 today. [place]roponin [place] [address]. Edema 2+ pitting to lower extremities. Venous stasis changes noted. Will obtain echocardiogram. Continue IV lasix. Is currently on isaak inhibitor. Probable discharge home tomorrow. 03-28-2019 patient is feeling better. Shortness of breath minimal today. Does continue to have pitting edema in her legs, oozing serous drainage today. Actually up 1 # [place] [address] but breathing status is improved. Did have echocardiogram this am. Other labs are stable. Blood pressure variable, 91/66 to 103/73. Will continue with IV Lasix. Arrange for dietary consult in regards to low salt diet, dietitian here tomorrow. Discharge likely tomorrow after consult.
[2019-03-28] MEDS: Simvastatin 10 MG Tab PO SCH (20:50)
[2019-03-29] MEDS: Levothyroxine 100 MCG Tab PO SCH (06:29)
[2019-03-29] MEDS: Citalopram 10 MG Tab PO SCH (07:25)
[2019-03-29] MEDS: Ferrous Sulfate 324 MG Tab.EC PO SCH (07:25)
[2019-03-29] MEDS: Aspirin 81 MG Tab.EC PO SCH (07:26)
[2019-03-29] MEDS: Lisinopril 20 MG Tab PO SCH (07:26)
[2019-03-29] MEDS: Vitamin B Complex Cap PO SCH (07:27)
[2019-03-29] MEDS: Multivitamin Tab PO SCH (07:27)
[2019-03-29] MEDS: Metoprolol Succinate 25 MG Tab.ER PO SCH (07:27)
[2019-03-29] MEDS: Cholecalciferol (Vitamin D3) 25 MCG Tab PO SCH (07:27)
[2019-03-29 07:28] VITALS: BP 103/76; PULSE 74
[2019-03-29] MEDS: Furosemide 40 MG/4 ML VIAL IVPUSH SCH (07:28)
--- NOTE | 2019-03-29 11:16 | PCM.DCSUM1 ---
Discharge Summary - Hospital Course Free Text/Narrative:: Patient presented to ER with complaints of increasing shortness of breath and bilateral lower extremity edema. Has history of CHF, was advised for admission on Wednesday in clinic but refused. Started having left upper chest pain last night. Does typically have edema and orthopnea but now worsening. Labs show normal WBC at 5.6. Hgb 13.3. INR stable. proBNP 15781. Troponin indeterminate. Admitted and started on IV Lasix. Diagnosis: Stroke: No Modified [place] Scale: No Symptoms at All Modified [place] Scale Score: 0 - Discharge Data Discharge Date: 03/29/19 Discharge Disposition: Home, Self-Care 01 Condition: Good - Referral to Home Health Primary Care Physician: Dina Benjamin PA-C - Discharge Diagnosis/Problem(s) (1) Congestive heart failure SNOMED Code(s): 43334993 ICD Code: I50.9 - HEART FAILURE, UNSPECIFIED Status: Acute Priority: High Problem Details: Acute on chronic systolic heart failure, class II Qualifiers: Heart failure type: systolic Heart failure chronicity: acute on chronic Qualified Code(s): I50.23 - Acute on chronic systolic (congestive) heart failure (2) Shortness of breath at rest SNOMED Code(s): 344056017 ICD Code: R06.02 - SHORTNESS OF BREATH Status: Acute Priority: High - Patient Summary/Data Complications: none Consults: Consultations 03/28/19 09:27 Consult to Dietary [Consult to [employer] Tile Setter] [CONS] Routine Hospital Course: Patient admits to feeling better. Is ambulating about in room, states tolerating much better. Still sleeping in recliner but states that is her norm. Edema has improved, down to 1+ pitting. Moderate voiding. Lung sounds are clear. WBC has remained normal at 5.6 today. INR stable at 2.49[place] [address], [place] [address]. Troponin stable. Creatinine improved to 1.3 on day 2 but now up again to 1.8. Did obtain echocardiogram, awaiting results. Patient requesting to be discharged home. Dietitian consult completed , recommend low salt diet. Will continue with lasix 80 mg daily. Add metolazone 3 times per week. Follow up with repeat labs next week with Dina Benjamin. - Patient Instructions Diet: Low Sodium Activity: As Tolerated - Discharge Plan *PRESCRIPTION DRUG MONITORING PROGRAM REVIEWED*: Not Applicable *COPY OF PRESCRIPTION DRUG MONITORING REPORT IN PATIENT DILIP: Not Applicable Prescriptions/Med Rec: metOLazone [Metolazone] 5 mg PO MOWEFR #15 tablet Home Medications: Home Meds Aspirin [Ecotrin EC] 81 mg PO DAILY 12/02/15 [History] Cholecalciferol (Vitamin D3) [Vitamin D3] 3,000 unit PO DAILY 12/02/15 [History] Citalopram Hydrobromide [Citalopram HBr] 40 mg PO DAILY 12/02/15 [History] Ferrous Sulfate 1 tab PO DAILY 12/02/15 [History] Fish Oil/[place]-3 Fatty Acids [Fish Oil 1,000 MG] 2,000 mg PO BEDTIME 12/02/15 [ History] Furosemide 80 mg PO QAM 12/02/15 [History] Levothyroxine Sodium [Synthroid] 200 mcg PO DAILY 12/02/15 [History] Lisinopril [Zestril] 20 mg PO DAILY 12/02/15 [History] Lovastatin 20 mg PO DAILY 12/02/15 [History] Magnesium 500 mg PO DAILY 12/02/15 [History] Multivit-Min/FA/Lycopene/Lut [Centrum Silver Tablet] 1 tab PO DAILY 12/02/15 [ History] Vitamin B Complex 1 tab PO DAILY 12/02/15 [History] Warfarin [Coumadin] 5 mg PO SUTUTHSA 12/02/15 [History] ALPRAZolam [Xanax] 0.25 mg PO BID PRN 08/20/17 [History] Warfarin Sodium 7.5 mg PO MOWEFR 08/20/17 [History] Acetaminophen [Tylenol Extra Strength] 1 mg PO ASDIRECTED 09/08/18 [History] Metoprolol Succinate 50 mg PO DAILY 09/08/18 [History] metOLazone [Metolazone] 5 mg PO MOWEFR #15 tablet 03/29/19 [Rx] Forms: ED Department Discharge Referrals: Dina Benjamin PA-C [Primary Care Provider] - (Follow up with Dina on the , recheck labs prior to visit) - Discharge Summary/Plan Comment DC Time >30 min.: No - General Info Date of Service: 03/30/19 Admission Dx/Problem (Free Text: CHF Exacerbation Functional Status: Reports: Pain Controlled, Tolerating Diet, Ambulating - Review of Systems General: Reports: Weakness, Fatigue HEENT: Reports: No Symptoms Pulmonary: Denies: Shortness of Breath, Cough Cardiovascular: Reports: Edema. Denies: Chest Pain, Lightheadedness Gastrointestinal: Denies: Abdominal Pain, Nausea, Vomiting Genitourinary: Reports: No Symptoms Musculoskeletal: Reports: No Symptoms Skin: Reports: No Symptoms Neurological: Reports: No Symptoms - Patient Data Vitals - Most Recent: Last Vital Signs Temp 97.4 F 03/29/19 08:00 Pulse 74 03/29/19 08:00 Resp 22 H 03/29/19 08:00 BP 103/76 03/29/19 08:00 Pulse Ox 96 03/29/19 08:00 Weight - Most Recent: 207 lb 14.4 oz I&O - Last 24 hours: Intake & Output 03/28/19 03/29/19 03/29/19 22:59 06:59 14:59 Intake Total 300 600 Output Total 200 375 Balance 100 225 Lab Results - Last 24 hrs: Laboratory Results - last 24 hr 03/29/19 03/29/19 03/29/19 Range/Units 06:55 06:55 06:55 WBC 5.6 (5.0-10.0) 10^3/uL RBC 3.99 L (4.00-5.50) 10^6/uL Hgb 13.3 (12.0-16.0) g/dL Hct 41.0 (37.0-47.0) % MCV 102.8 H (82.0-94.0) fL MCH 33.3 H (27.0-32.0) pg MCHC 32.4 L (33.0-38.0) g/dL RDW Coeff of Viky 16.4 H (11.0-15.0) % Plt Count 292 (150-400) 10^3/uL Neut % (Auto) 58.0 (35-85) % Lymph % (Auto) 31.2 (10-55) % [place] % (Auto) 7.2 (0-16) % Eos % (Auto) 2.9 (0-5) % Baso % (Auto) 0.7 (0-3) % Neut # (Auto) 3.23 (1.80-7.00) 10^3/uL Lymph # (Auto) 1.74 (1.00-4.80) 10^3/uL [place] # (Auto) 0.40 (0.00-0.80) 10^3/uL Eos # (Auto) 0.16 (0.00-0.45) 10^3/uL Baso # (Auto) 0.04 10^3/uL PT 24.4 H (9.7-12.3) SEC INR 2.49 H (0.92-1.18) Sodium 138 (136-145) mEq/L Potassium 4.3 (3.5-5.0) mEq/L Chloride 103 (98-106) mEq/L Carbon Dioxide 26 (21-32) mmol/L BUN 42 H (7-18) mg/dL Creatinine 1.8 H (0.6-1.0) mg/dL Est Cr Clr Drug Dosing 26.06 mL/min Estimated GFR (MDRD) 28 L (>=60) mL/min Glucose 115 H (75-99) mg/dL Calcium 9.1 (8.4-10.1) mg/dL NT-Pro-B Natriuret Pep 85833 H (0-1000) pg/mL Med Orders - Current: Current Medications Discontinued Medications Acetaminophen (Tylenol Extra Strength) 1 mg PO ASDIRECTED [facility] Alprazolam (Xanax) 0.25 mg PO BID PRN PRN Reason: Anxiety Aspirin (Halfprin) 81 mg PO DAILY [facility] Last Admin: 03/29/19 07:26 Dose: 81 mg Cholecalciferol (Vitamin D3) 75 mcg PO DAILY [facility] Last Admin: 03/29/19 07:27 Dose: 75 mcg Citalopram Hydrobromide (Celexa) 40 mg PO DAILY [facility] Last Admin: 03/29/19 07:25 Dose: 40 mg Ferrous Sulfate (Ferrous Sulfate) 324 mg PO DAILY [facility] Last Admin: 03/29/19 07:25 Dose: 324 mg Furosemide (Lasix) 40 mg IVPUSH ONETIME ONE Stop: 03/26/19 10:14 Last Admin: 03/26/19 10:27 Dose: 40 mg Furosemide (Lasix) 40 mg IVPUSH BIDDIURETIC [facility] Last Admin: 03/29/19 07:28 Dose: 40 mg Sodium Chloride (Normal Saline) 1,000 mls @ 100 mls/hr IV ASDIRECTED [facility] Stop: 03/26/19 21:15 Last Admin: 03/26/19 15:09 Dose: 100 mls/hr Levothyroxine Sodium (Synthroid) 200 mcg PO ACBRK [facility] Last Admin: 03/29/19 06:29 Dose: 200 mcg Lisinopril (Prinivil) 20 mg PO DAILY [facility] Last Admin: 03/29/19 07:26 Dose: 20 mg Magnesium Oxide (Magnesium Oxide) 500 mg PO DAILY [facility] Last Admin: 03/29/19 07:26 Dose: 500 mg Metoprolol Succinate (Toprol Xl) 50 mg PO DAILY [facility] Last Admin: 03/29/19 07:27 Dose: 50 mg Morphine Sulfate (Morphine) 2 mg IVPUSH Q2H PRN PRN Reason: Pain (severe 7-10) Multivitamins/Minerals/Vitamin C (Tab-A-Yarely) 1 tab PO DAILY [facility] Last Admin: 03/29/19 07:27 Dose: 1 tab Non-Formulary Medication (Fish Oil/[place]-3 Fatty Acids [Fish Oil 1,000 Mg]) 2, 000 mg PO BEDTIME [facility] Ondansetron HCl (Zofran) 4 mg IV Q6H PRN PRN Reason: Nausea/Vomiting Simvastatin (Zocor) 10 mg PO BEDTIME [facility] Last Admin: 03/28/19 20:50 Dose: 10 mg Vitamin B Complex (Vitamin B Complex) 1 each PO DAILY [facility] Last Admin: 03/29/19 07:27 Dose: 1 each Warfarin Sodium (Coumadin) 5 mg PO SuTuThSa@1200 [facility] Last Admin: 03/28/19 11:48 Dose: 5 mg Warfarin Sodium (Coumadin) 7.5 mg PO MoWeFr@1200 [facility] Last Admin: 03/27/19 13:06 Dose: 7.5 mg - Exam General: Reports: Alert, Oriented HEENT: Reports: Mucous Membr. Moist/[place] Neck: Reports: Supple Lungs: Reports: Clear to Auscultation, Normal Respiratory Effort Cardiovascular: Reports: Regular Rate, Regular Rhythm GI/Abdominal Exam: Normal Bowel Sounds, Soft, Non-Tender Extremities: Normal Inspection, Pedal Edema (1+ pitting edema) Skin: Reports: Warm, Dry Neurological: Reports: No New Focal Deficit
== END 2019-03-29 10:30 | disposition home or self-care (01) | DRG 291 ==
LOC: CC.ED 09:05 → CC.MS 11:50 → UNDOADMIN 11:50 → CC.MS 13:01
PROVIDERS: ADMIT Nurse Practitioner; ATTEND Family Medicine
DX: I13.0 Hypertensive heart and chronic kidney disease with heart failure and stage 1 through stage 4 chronic kidney disease, or unspecified chronic kidney disease (principal); I50.9 Heart failure, unspecified; I50.23 Acute on chronic systolic (congestive) heart failure; N17.9 Acute kidney failure, unspecified; J45.909 Unspecified asthma, uncomplicated; E78.00 Pure hypercholesterolemia, unspecified; I48.91 Unspecified atrial fibrillation; K59.09 Other constipation; K21.9 Gastro-esophageal reflux disease without esophagitis; M06.9 Rheumatoid arthritis, unspecified; E11.22 Type 2 diabetes mellitus with diabetic chronic kidney disease; M19.90 Unspecified osteoarthritis, unspecified site; E55.9 Vitamin D deficiency, unspecified; N60.19 Diffuse cystic mastopathy of unspecified breast; N18.3 Chronic kidney disease, stage 3 (moderate); M10.9 Gout, unspecified; F32.9 Major depressive disorder, single episode, unspecified; Z96.641 Presence of right artificial hip joint; Z88.8 Allergy status to other drugs, medicaments and biological substances; Z96.649 Presence of unspecified artificial hip joint; Z95.1 Presence of aortocoronary bypass graft; Z95.2 Presence of prosthetic heart valve; Z95.0 Presence of cardiac pacemaker; Z79.82 Long term (current) use of aspirin; Z79.890 Hormone replacement therapy; R35.1 Nocturia; R42 Dizziness and giddiness; R60.9 Edema, unspecified; R06.02 Shortness of breath; R06.9 Unspecified abnormalities of breathing; R07.9 Chest pain, unspecified; R05 Cough; Z79.01 Long term (current) use of anticoagulants; Z79.899 Other long term (current) drug therapy; Z90.49 Acquired absence of other specified parts of digestive tract; Z90.710 Acquired absence of both cervix and uterus
CPT/HCPCS: 36415; 71046; 80053; 82550; 83615; 83880; 84484; 85025; 85610; 96374; 99285; J1940; 80048; 93005; 93010; 93306; A9270-GY; J7030

== ENCOUNTER 2019-10-03 23:14 | Inpatient (IN) | payer MEDICARE, BC ==
--- NOTE | 2019-10-04 00:21 | EDM.PDOC ---
ED HPI GENERAL MEDICAL PROBLEM - General Chief Complaint: Cardiovascular Problem Stated Complaint: dyspnea Time Seen by Provider: 10/04/19 00:07 Source of Information: Reports: Patient History Limitations: Reports: No Limitations - History of Present Illness INITIAL COMMENTS - FREE TEXT/NARRATIVE: Patient presents to ER with complaints of increased shortness of breath and edema. Has noted her weight has gone up but also admits she has been eating more as of late as well. RLE has more edema, skin is taut and firm compared to usual. Shortness of breath increased over the last 2 days. Has been eating pre -made hamburger patties and did note they had a higher content of salt than she tries to use on a normal basis. Also ran out of Metolazone at the beginning of the month, has not requested it to be refilled. Has been taking her usual 80 mg of Lasix daily. She denies cough. No chest pain. No nausea/vomiting/ diarrhea. No fevers. Onset: Gradual Duration: Day(s):, Getting Worse Associated Symptoms: Reports: Shortness of Breath. Denies: Confusion, Chest Pain, Cough, Fever/Chills, Loss of Appetite, Nausea/Vomiting, Syncope - Related Data Allergies Allergy/AdvReac Type Severity Reaction Status Date / Time celecoxib [From Celebrex] Allergy Hives Verified 10/03/19 23:22 Home Meds: Home Meds Aspirin [Ecotrin EC] 81 mg PO DAILY 12/02/15 [History] Citalopram Hydrobromide [Citalopram HBr] 40 mg PO DAILY 12/02/15 [History] Ferrous Sulfate 1 tab PO DAILY 12/02/15 [History] Fish Oil/Luna-3 Fatty Acids [Fish Oil 1,000 MG] 2,000 mg PO BEDTIME 12/02/15 [ History] Furosemide 80 mg PO QAM 12/02/15 [History] Levothyroxine Sodium [Synthroid] 200 mcg PO DAILY 12/02/15 [History] Lovastatin 20 mg PO DAILY 12/02/15 [History] Magnesium 500 mg PO DAILY 12/02/15 [History] Multivit-Min/FA/Lycopen/Lutein [Centrum Silver Tablet] 1 tab PO DAILY 12/02/15 [ History] Vitamin B Complex 1 tab PO DAILY 12/02/15 [History] Warfarin [Coumadin] 10 mg PO ASDIRECTED 12/02/15 [History] lisinopriL [Zestril] 20 mg PO DAILY 12/02/15 [History] Warfarin Sodium 7.5 mg PO ASDIRECTED 08/20/17 [History] Acetaminophen [Tylenol Extra Strength] 1,000 mg PO BID 09/08/18 [History] Cholecalciferol (Vitamin D3) [Vitamin D3] 5,000 unit PO DAILY 10/03/19 [History] Past Medical History HEENT History: Reports: Cataract Cardiovascular History: Reports: Afib, Bypass, Heart Failure, Heart Valve Replacement, High Cholesterol, Hypertension, Pacemaker Other Cardiovascular History: says she had a pacemaker inserted about 4 years ago; was supposed to have hip surgery, but had to "work on her heart." Knew she had a leaky valve, time to get that "fixed." Since surgery, incision healing, some incision pain when coughing; had collapsed lung right after surgery; has lost weight this year; is tired walking around the house; appetit OK; saw Dr. Trotter on 01-31-16 and 02-06 for followup; said she has a cough, clear or yellow sputum, had this before surgery Respiratory History: Reports: Asthma, SOB Gastrointestinal History: Reports: Chronic Constipation, GERD Genitourinary History: Reports: Other (See Below) Other Genitourinary History: nocturia, fibrocystic breast disease [employer] History: Reports: Musculoskeletal History: Reports: Arthritis, Gout, RA, Other (See Below) Other Musculoskeletal History: history of bursitis to left knee and right hip, sacroilitis, osteopenia Neurological History: Reports: Vertigo Psychiatric History: Reports: Depression Endocrine/Metabolic History: Reports: Diabetes, Type II, Other (See Below) Other Endocrine/Metabolic History: THYROID CA; THYROID REMOVED Hematologic History: Reports: Other (See Below) Other Hematologic History: vitamin d deficiency Oncologic (Cancer) History: Reports: Cervix, Thyroid Dermatologic History: Reports: Other (See Below) Other Dermatologic History: atypical nevus - Past Surgical History HEENT Surgical History: Reports: Cataract Surgery Cardiovascular Surgical History: Reports: Coronary Artery Bypass, Pacer, Valve Replacement Respiratory Surgical History: Reports: None GI Surgical History: Reports: Appendectomy, Cholecystectomy Female Surgical History: Reports: Section, Hysterectomy Musculoskeletal Surgical History: Reports: Hip Replacement Other Musculoskeletal Surgeries/Procedures:: r) HIP Oncologic Surgical History: Reports: None Social & Family History - Family History Family Medical History: Noncontributory - Tobacco Use Smoking Status *Q: Never Smoker - Caffeine Use Caffeine Use: Reports: Coffee - Living Situation & Occupation Living situation: Reports: , with Spouse Occupation: Retired ED ROS GENERAL - Review of Systems Review Of Systems: See Below Constitutional: Denies: Fever, Chills, Malaise, Weakness, Fatigue, Decreased Appetite HEENT: Denies: Ear Pain, Sinus Problem, Throat Pain Respiratory: Reports: Shortness of Breath. Denies: Cough Cardiovascular: Reports: Edema. Denies: Chest Pain, Lightheadedness Endocrine: Denies: Fatigue GI/Abdominal: Denies: Abdominal Pain, Constipation, Diarrhea, Nausea, Vomiting : Reports: No Symptoms Musculoskeletal: Reports: No Symptoms Skin: Reports: No Symptoms Neurological: Reports: No Symptoms Psychiatric: Reports: No Symptoms ED EXAM, GENERAL - Physical Exam Exam: See Below Exam Limited By: No Limitations General Appearance: Alert, WD/WN, No Apparent Distress Ears: Normal External Exam, Normal TMs Nose: Normal Inspection, Normal Mucosa, No Blood Throat/Mouth: Normal Inspection, Normal Oropharynx Head: Normocephalic Neck: Normal Inspection, Supple, Non-Tender Respiratory/Chest: No Respiratory Distress, Lungs Clear, Normal Breath Sounds Cardiovascular: Regular Rate, Rhythm GI/Abdominal: Normal Bowel Sounds, Soft, Non-Tender Extremities: Pedal Edema (3+ pitting RLE, 1+ LLE; chronic venous stasis changes noted) Neurological: Alert, Oriented Skin Exam: Warm, Dry Course - Vital Signs Last Recorded V/S: Last Vital Signs Temp 97.6 F 10/03/19 23:49 Pulse 95 10/03/19 23:49 Resp 16 10/03/19 23:49 BP 115/73 10/03/19 23:49 Pulse Ox 98 10/03/19 23:49 - Orders/Labs/Meds Orders: Active Orders 24 hr Category Date Time Status Patient Status Manage Transfer [TRANSFER] Routine ADT 10/04/19 00:32 Active EKG Documentation Completion [RC] STAT Care 10/03/19 23:15 Active CXR [Chest 2V] [CR] Stat Exams 10/03/19 23:46 Taken Resuscitation Status Routine Resus Stat 10/04/19 00:33 Ordered Labs: Laboratory Tests 10/03/19 10/03/19 10/03/19 Range/Units 00:05 00:05 00:05 WBC 6.8 (5.0-10.0) 10^3/uL RBC 3.56 L (4.00-5.50) 10^6/uL Hgb 11.8 L (12.0-16.0) g/dL Hct 36.1 L (37.0-47.0) % MCV 101.4 H (82.0-94.0) fL MCH 33.1 H (27.0-32.0) pg MCHC 32.7 L (33.0-38.0) g/dL RDW Coeff of Viky 13.4 (11.0-15.0) % Plt Count 290 (150-400) 10^3/uL Neut % (Auto) 66.9 (35-85) % Lymph % (Auto) 20.4 (10-55) % Bee % (Auto) 10.3 (0-16) % Eos % (Auto) 2.1 (0-5) % Baso % (Auto) 0.3 (0-3) % Neut # (Auto) 4.53 (1.80-7.00) 10^3/uL Lymph # (Auto) 1.38 (1.00-4.80) 10^3/uL Bee # (Auto) 0.70 (0.00-0.80) 10^3/uL Eos # (Auto) 0.14 (0.00-0.45) 10^3/uL Baso # (Auto) 0.02 10^3/uL PT 34.7 H (9.7-12.3) SEC INR 3.48 H (0.92-1.18) D-Dimer, Quantitative 0.56 H (0.00-0.50) Sodium 141 (136-145) mEq/L Potassium 4.5 (3.5-5.0) mEq/L Chloride 103 (98-106) mEq/L Carbon Dioxide 29 (21-32) mmol/L BUN 38 H (7-18) mg/dL Creatinine 1.6 H (0.6-1.0) mg/dL Est Cr Clr Drug Dosing 29.31 mL/min Estimated GFR (MDRD) 32 L (>=60) mL/min Glucose 131 H D (75-99) mg/dL Calcium 9.7 (8.4-10.1) mg/dL Total Bilirubin 0.9 (0.0-1.0) mg/dL AST 31 (15-37) U/L ALT 46 (12-78) U/L Alkaline Phosphatase 79 (46-116) U/L C-Reactive Protein 3.9 H (0.2-0.8) mg/dL NT-Pro-B Natriuret Pep > 16507 H (0-1000) pg/mL Total Protein 7.1 (6.4-8.2) g/dL Albumin 3.4 (3.4-5.0) g/dL - Re-Assessments/Exams Free Text/Narrative Re-Assessment/Exam: 10/04/19 00:41 Labs are noted, ProBNP > 55056. Will admit to acute inpatient for diuresis. Start with IV Lasix now and schedule BID. Follow I & O, daily weights. Follow creatinine and INR closely. Departure - Departure Time of Disposition: 00:42 Disposition: Admitted As Inpatient 67 Condition: Fair Clinical Impression: Congestive heart failure Referrals: Dina Benjamin PA-C [Primary Care Provider] - Forms: ED Department Discharge Sepsis Event Note - Evaluation Sepsis Screening Result: No Definite Risk - Focused Exam Vital Signs: Vital Signs Temp Pulse Resp BP Pulse Ox 10/03/19 23:49 97.6 F 95 16 115/73 98 10/03/19 23:20 97.4 F 110 H 16 124/74 97 Date Exam was Performed: 10/04/19 Time Exam was Performed: 00:41 - Problem List & Annotations (1) Congestive heart failure SNOMED Code(s): 22068260 Code(s): I50.9 - HEART FAILURE, UNSPECIFIED Status: Acute Priority: High Current Visit: Yes Annotation/Comment:: Acute on chronic systolic heart failure, class II Qualifiers: Heart failure type: systolic Heart failure chronicity: acute on chronic Qualified Code(s): I50.23 - Acute on chronic systolic (congestive) heart failure (2) Palliative care patient SNOMED Code(s): 570161864, 435427524 Code(s): Z51.5 - ENCOUNTER FOR PALLIATIVE CARE Status: Acute Current Visit: Yes - Problem List Review Problem List Initiated/Reviewed/Updated: Yes - My Orders Last 24 Hours: My Active Orders 10/03/19 23:15 EKG Documentation Completion [RC] STAT 10/03/19 23:46 CXR [Chest 2V] [CR] Stat 10/04/19 00:32 Patient Status Manage Transfer [TRANSFER] Routine 10/04/19 00:33 Resuscitation Status Routine - Assessment/Plan Admission H&P: Please use this note as an admission H&P Last 24 Hours: My Active Orders 10/03/19 23:15 EKG Documentation Completion [RC] STAT 10/03/19 23:46 CXR [Chest 2V] [CR] Stat 10/04/19 00:32 Patient Status Manage Transfer [TRANSFER] Routine 10/04/19 00:33 Resuscitation Status Routine Assessment:: Acute on chronic CHF, stage II Palliative care patient Plan: Admit inpatient for IV diuresis/cardiac monitoring.
[2019-10-04 00:28] LABS: CHLORIDE,CL 103 mEq/L (98-106); SODIUM,NA 141 mEq/L (136-145)
[2019-10-04] MEDS ORDERED: Furosemide 40 MG/4 ML VIAL IVPUSH ONE (01:05)
[2019-10-04] MEDS ORDERED: Ondansetron 4 MG/2 ML SDV IV PRN (01:05)
[2019-10-04] MEDS ORDERED: Ondansetron 4 MG Tab.DIS PO PRN (01:05)
[2019-10-04] MEDS ORDERED: Acetaminophen 325 MG Tab PO PRN (01:05)
[2019-10-04] MEDS ORDERED: Sodium Chloride 0.9% 10 ML Syringe FLUSH PRN (01:05)
[2019-10-04] MEDS ORDERED: Furosemide 40 MG/4 ML VIAL IVPUSH SCH (08:00)
[2019-10-04] MEDS: Nystatin Crm 30 GM Tube TOP SCH ×2 (08:11→19:25)
[2019-10-04] MEDS: Citalopram 10 MG Tab PO SCH (08:12)
[2019-10-04] MEDS: Aspirin 81 MG Tab.EC PO SCH (08:12)
[2019-10-04] MEDS: Lisinopril 20 MG Tab PO SCH (08:13)
[2019-10-04] MEDS: Cholecalciferol (Vitamin D3) 25 MCG Tab PO SCH (08:13)
[2019-10-04] MEDS: Acetaminophen 500 MG Tab PO SCH ×2 (08:13→19:23)
[2019-10-04] MEDS: Simvastatin 10 MG Tab PO SCH (08:14)
[2019-10-04] MEDS: Levothyroxine 100 MCG Tab PO SCH (08:14)
[2019-10-04] MEDS: Multivitamin Tab PO SCH (08:14)
[2019-10-04] MEDS: Ferrous Sulfate 324 MG Tab.EC PO SCH (08:14)
[2019-10-04] MEDS: Warfarin 5 MG Tab PO SCH (11:55)
[2019-10-04] MEDS: Metoprolol Tartrate 25 MG Tab PO SCH ×2 (11:55→19:24)
[2019-10-04] MEDS: Furosemide 40 MG/4 ML VIAL IVPUSH SCH (16:12)
[2019-10-05] MEDS: Cholecalciferol (Vitamin D3) 25 MCG Tab PO SCH (08:27)
[2019-10-05] MEDS: Aspirin 81 MG Tab.EC PO SCH (08:28)
[2019-10-05] MEDS: Citalopram 10 MG Tab PO SCH (08:28)
[2019-10-05] MEDS: Metoprolol Tartrate 25 MG Tab PO SCH ×2 (08:28→20:00)
[2019-10-05] MEDS: Simvastatin 10 MG Tab PO SCH (08:28)
[2019-10-05] MEDS: Multivitamin Tab PO SCH (08:28)
[2019-10-05] MEDS: Levothyroxine 100 MCG Tab PO SCH (08:28)
[2019-10-05] MEDS: Acetaminophen 500 MG Tab PO SCH ×2 (08:29→20:01)
[2019-10-05] MEDS: Ferrous Sulfate 324 MG Tab.EC PO SCH (08:29)
[2019-10-05] MEDS: Nystatin Crm 30 GM Tube TOP SCH ×2 (08:30→20:02)
[2019-10-05] MEDS: Lisinopril 20 MG Tab PO SCH (08:30)
[2019-10-05] MEDS: Furosemide 40 MG/4 ML VIAL IVPUSH SCH ×2 (08:30→16:06)
[2019-10-05] MEDS: Warfarin 5 MG Tab PO SCH (08:31)
[2019-10-05] MEDS ORDERED: Bisacodyl 5 MG Tab PO PRN (10:53)
--- NOTE | 2019-10-05 13:37 | PN ---
DATE: 10/05/2019 S: Ms. Schmidt was admitted for CHF exacerbation. She apparently stopped her metolazone at home or something along those lines because the prescription ran out and she did not get it in the mail. Nevertheless, she came in with some volume overload. Danay started her on some IV Lasix. Her INR is elevated at 6.9 today. Otherwise, her labs are relatively stable. Creatinine bumped up slightly from her diuretic. O: GENERAL: She is sitting in chair. She is pleasant, cooperative, and appears in no distress. HEENT: Grossly benign. NECK: Veins are nondistended. LUNGS: Sounds are diminished with bibasilar crackles. CARDIAC: Tones irregular. Right now, running anywhere from 80s to 120 at times. EXTREMITIES: Her lower extremities have edema worse on the right, which is apparently chronic for her. ASSESSMENT: 1. CONGESTIVE HEART FAILURE EXACERBATION. 2. PALLIATIVE CARE. 3. SUPRATHERAPEUTIC INR. P: We will continue IV diuresis. Unsure on her weights, does not show a big difference today, but she was weighed with telemetry this morning, etc. For now, we will just monitor her vitals. Continue with IV diuresis and likely home tomorrow. She is supratherapeutic on her INR. We will just hold her Coumadin and continue to monitor lab. YESSENIA/EDGAR /[id number]
[2019-10-06] MEDS: Furosemide 40 MG/4 ML VIAL IVPUSH SCH (08:48)
[2019-10-06] MEDS: Ferrous Sulfate 324 MG Tab.EC PO SCH (08:49)
[2019-10-06] MEDS: Cholecalciferol (Vitamin D3) 25 MCG Tab PO SCH (08:49)
[2019-10-06] MEDS: Levothyroxine 100 MCG Tab PO SCH (08:49)
[2019-10-06] MEDS: Acetaminophen 500 MG Tab PO SCH ×2 (08:50→19:53)
[2019-10-06] MEDS: Simvastatin 10 MG Tab PO SCH (08:51)
[2019-10-06] MEDS: Aspirin 81 MG Tab.EC PO SCH (08:51)
[2019-10-06] MEDS: Citalopram 10 MG Tab PO SCH (08:51)
[2019-10-06] MEDS: Nystatin Crm 30 GM Tube TOP SCH ×2 (08:52→19:56)
[2019-10-06] MEDS: Multivitamin Tab PO SCH (08:52)
[2019-10-06] MEDS: Lisinopril 20 MG Tab PO SCH (12:38)
[2019-10-06] MEDS: Metoprolol Tartrate 25 MG Tab PO SCH ×2 (12:39→19:54)
[2019-10-06] MEDS ORDERED: Magnesium Hydroxide 400 MG/5 ML Susp 30 ML Cup PO ONE ×2 (12:57→17:15)
[2019-10-07] MEDS: Nystatin Crm 30 GM Tube TOP SCH ×2 (07:33→19:51)
[2019-10-07] MEDS: Citalopram 10 MG Tab PO SCH (07:33)
[2019-10-07] MEDS: Metoprolol Tartrate 25 MG Tab PO SCH ×2 (07:35→19:50)
[2019-10-07] MEDS: Ferrous Sulfate 324 MG Tab.EC PO SCH (07:35)
[2019-10-07] MEDS: Levothyroxine 100 MCG Tab PO SCH (07:37)
[2019-10-07] MEDS: Acetaminophen 500 MG Tab PO SCH ×2 (07:37→19:50)
[2019-10-07] MEDS: Cholecalciferol (Vitamin D3) 25 MCG Tab PO SCH (07:38)
[2019-10-07] MEDS: Simvastatin 10 MG Tab PO SCH (07:39)
[2019-10-07] MEDS: Furosemide 40 MG/4 ML VIAL IVPUSH SCH (07:39)
[2019-10-07] MEDS: Aspirin 81 MG Tab.EC PO SCH (07:39)
[2019-10-07] MEDS: Multivitamin Tab PO SCH (07:39)
--- NOTE | 2019-10-07 08:21 | PN ---
DATE: 10/06/2019 S: The patient has been doing reasonably well. She continues to be a little tachycardic with her AFib, but typically we are keeping her under 1 teens. We do have her back on metoprolol which is helping. Her blood pressures have been a little bit on the low end, around 90 to 110 systolic. She feels a lot better. Unfortunately, we do not have accurate weights on her, so it is hard to know where she is at today, it actually shows she is up 3 kg since admission. Her lab work shows stability, although her creatinine is up a little bit to 2.0. O: VITAL SIGNS: She is pleasant and cooperative. She does not appear in distress. Her sats are fine, 98% on room air. HEENT: Grossly benign. NECK: Her neck veins are nondistended. LUNGS: Still some basilar crackles, more prominent on the left. HEART: Heart rate is anywhere from 90 to 110 and irregular. ABDOMEN: Obese and soft. EXTREMITIES: Left lower extremity improved. Right lower extremity little bit larger and appears better than yesterday. ASSESSMENT: 1. ACUTE EXACERBATION OF CHRONIC SYSTOLIC CONGESTIVE HEART FAILURE. 2. SUPRATHERAPEUTIC INR. 3. PALLIATIVE CARES. P: The patient is doing better. We will keep her on just 1 dose of Lasix today. Clinically, she appears much better. Her INR remains elevated around 8, but she is not having any signs of bleeding. We will continue to monitor. Her Coumadin is being held. I am going to back off her DAO inhibitor slightly as her pressures are down and I would like her to continue on low-dose metoprolol for rate control, hopefully home by morning. YESSENIA/EDGAR /[id number]
--- NOTE | 2019-10-07 13:05 | PCM.PN ---
- General Info Date of Service: 10/07/19 Functional Status: Reports: Pain Controlled, Tolerating Diet, Ambulating, Urinating. Denies: New Symptoms - Review of Systems General: Reports: No Symptoms. Denies: Fever, Weakness, Chills HEENT: Reports: No Symptoms. Denies: Ear Pain, Sinus Congestion, Sore Throat Pulmonary: Reports: No Symptoms. Denies: Shortness of Breath, Cough, Wheezing Cardiovascular: Reports: No Symptoms Gastrointestinal: Reports: No Symptoms. Denies: Abdominal Pain, Constipation, Decreased Appetite, Diarrhea, Nausea, Vomiting Genitourinary: Reports: No Symptoms Musculoskeletal: Reports: No Symptoms Skin: Reports: No Symptoms Neurological: Reports: No Symptoms. Denies: Confusion, Dizziness, Headache Psychiatric: Reports: No Symptoms - Patient Data Vitals - Most Recent: Last Vital Signs Temp 36.6 C 10/07/19 12:00 Pulse 92 10/07/19 12:00 Resp 16 10/07/19 12:00 BP 112/70 10/07/19 12:00 Pulse Ox 94 L 10/07/19 12:00 Weight - Most Recent: 95.3 kg I&O - Last 24 Hours: Intake & Output 10/06/19 10/07/19 10/07/19 22:59 06:59 14:59 Intake Total 1500 650 Output Total 2400 Balance -900 650 Lab Results Last 24 Hours: Laboratory Results - last 24 hr 10/07/19 Range/Units 07:00 PT 61.6 H (9.7-12.3) SEC INR 6.21 H* (0.92-1.18) Med Orders - Current: Current Medications Acetaminophen (Tylenol) 650 mg PO Q4H PRN PRN Reason: Pain (Mild 1-3)/fever Acetaminophen (Tylenol Extra Strength) 1,000 mg PO BID [facility] Last Admin: 10/07/19 07:37 Dose: 1,000 mg Aspirin (Halfprin) 81 mg PO DAILY [facility] Last Admin: 10/07/19 07:39 Dose: 81 mg Bisacodyl (Dulcolax) 5 mg PO DAILY PRN PRN Reason: Constipation Last Admin: 10/05/19 13:50 Dose: 5 mg Cholecalciferol (Vitamin D3) 125 mcg PO DAILY [facility] Last Admin: 10/07/19 07:38 Dose: 125 mcg Citalopram Hydrobromide (Celexa) 40 mg PO DAILY [facility] Last Admin: 10/07/19 07:33 Dose: 40 mg Ferrous Sulfate (Ferrous Sulfate) 324 mg PO DAILY [facility] Last Admin: 10/07/19 07:35 Dose: 324 mg Furosemide (Lasix) 40 mg IVPUSH Q24H [facility] Last Admin: 10/07/19 07:39 Dose: 40 mg Levothyroxine Sodium (Synthroid) 200 mcg PO DAILY [facility] Last Admin: 10/07/19 07:37 Dose: 200 mcg Lisinopril (Prinivil) 20 mg PO DAILY [facility] Last Admin: 10/06/19 12:38 Dose: Not Given Magnesium Oxide (Magnesium Oxide) 500 mg PO DAILY [facility] Last Admin: 10/07/19 07:36 Dose: 500 mg Metoprolol Tartrate (Lopressor) 12.5 mg PO BID [facility] Last Admin: 10/07/19 07:35 Dose: 12.5 mg Multivitamins/Minerals/Vitamin C (Tab-A-Yarely) 1 tab PO DAILY [facility] Last Admin: 10/07/19 07:39 Dose: 1 tab Nystatin (Nystatin Crm) 0 gm TOP BID [facility] Last Admin: 10/07/19 07:33 Dose: 1 applic Ondansetron HCl (Zofran Odt) 4 mg PO Q4H PRN PRN Reason: nausea, able to take PO Ondansetron HCl (Zofran) 4 mg IV Q4H PRN PRN Reason: Nausea/Vomiting Simvastatin (Zocor) 10 mg PO DAILY [facility] Last Admin: 10/07/19 07:39 Dose: 10 mg Sodium Chloride (Saline Flush) 10 ml FLUSH ASDIRECTED PRN PRN Reason: Keep Vein Open Warfarin Sodium (Coumadin) 7.5 mg PO DAILY [facility] Last Admin: 10/05/19 08:31 Dose: Not Given Discontinued Medications Furosemide (Lasix) 40 mg IVPUSH ONETIME ONE Stop: 10/04/19 01:06 Last Admin: 10/04/19 01:46 Dose: 40 mg Furosemide (Lasix) 40 mg IVPUSH BID [facility] Last Admin: 10/04/19 08:14 Dose: 40 mg Furosemide (Lasix) 40 mg IVPUSH BIDDIURETIC [facility] Last Admin: 10/06/19 08:48 Dose: 40 mg Magnesium Hydroxide (Milk Of Magnesia) 30 ml PO ONETIME ONE Stop: 10/06/19 12:58 Last Admin: 10/06/19 17:23 Dose: Not Given Magnesium Hydroxide (Milk Of Magnesia) 30 ml PO ONETIME ONE Stop: 10/06/19 17:16 Last Admin: 10/06/19 17:26 Dose: 30 ml - Exam Quality Assessment: No: Supplemental Oxygen General: Alert, Oriented, Cooperative, No Acute Distress HEENT: Pupils Equal Neck: Supple, Trachea Midline Lungs: Clear to Auscultation, Normal Respiratory Effort. No: Crackles, Rales, Wheezing Cardiovascular: Irregular Rhythm, Murmurs GI/Abdominal Exam: Normal Bowel Sounds, Soft, Non-Tender Back Exam: Normal Inspection, Full Range of Motion Extremities: Normal Inspection, Normal Range of Motion, Non-Tender, Normal Capillary Refill, Pedal Edema Peripheral Pulses: 2+: Radial (L), Radial (R), Dorsalis Pedis (L), Dorsalis Pedis (R) Skin: Warm, Dry, Intact Neurological: No New Focal Deficit Psy/Mental Status: Alert, Normal Affect, Normal Mood Sepsis Event Note - Evaluation Sepsis Screening Result: No Definite Risk - Focused Exam Vital Signs: Vital Signs Temp Pulse Pulse Resp BP BP BP 10/07/19 12:00 36.6 C 92 16 112/70 10/07/19 08:00 36.2 C 93 16 110/66 10/07/19 07:35 93 110/66 10/07/19 04:00 36.6 C 95 18 112/62 Pulse Ox 10/07/19 12:00 94 L 10/07/19 08:00 94 L 10/07/19 07:35 10/07/19 04:00 95 Date Exam was Performed: 10/07/19 Time Exam was Performed: 12:55 - Problem List & Annotations (1) Congestive heart failure SNOMED Code(s): 41333965 Code(s): I50.9 - HEART FAILURE, UNSPECIFIED Status: Acute Priority: High Current Visit: Yes Qualifiers: Heart failure type: systolic Heart failure chronicity: acute on chronic Qualified Code(s): I50.23 - Acute on chronic systolic (congestive) heart failure Annotation/Comment:: Acute on chronic systolic heart failure, class II (2) Anticoagulation goal of INR 2.5 to 3.5 SNOMED Code(s): 45375789 Code(s): Z51.81 - ENCOUNTER FOR THERAPEUTIC DRUG LEVEL MONITORING; Z79.01 - [facility] (CURRENT) USE OF ANTICOAGULANTS Status: Acute Priority: High Current Visit: No - Problem List Review Problem List Initiated/Reviewed/Updated: Yes - Plan Plan:: the pts INR is improving but is still >6, she denies SOB, denies any CP, as her INR is still significantly elevated, will continue to hold Coumadin and look at dc in am if the INR will decrease to 4.0, I discussed this with the pt and she agrees with the tx plan
[2019-10-08] MEDS: Ferrous Sulfate 324 MG Tab.EC PO SCH (07:57)
[2019-10-08] MEDS: Acetaminophen 500 MG Tab PO SCH ×2 (07:57→19:24)
[2019-10-08] MEDS: Citalopram 10 MG Tab PO SCH (07:57)
[2019-10-08] MEDS: Simvastatin 10 MG Tab PO SCH (07:57)
[2019-10-08] MEDS: Levothyroxine 100 MCG Tab PO SCH (07:57)
[2019-10-08] MEDS: Multivitamin Tab PO SCH (07:58)
[2019-10-08] MEDS: Aspirin 81 MG Tab.EC PO SCH (07:58)
[2019-10-08] MEDS: Metoprolol Tartrate 25 MG Tab PO SCH ×2 (07:58→19:24)
[2019-10-08] MEDS: Cholecalciferol (Vitamin D3) 25 MCG Tab PO SCH (07:58)
[2019-10-08] MEDS: Furosemide 40 MG/4 ML VIAL IVPUSH SCH (08:00)
[2019-10-08] MEDS: Nystatin Crm 30 GM Tube TOP SCH ×2 (11:20→19:41)
--- NOTE | 2019-10-08 13:11 | PCM.PN ---
- General Info Date of Service: 10/08/19 Functional Status: Reports: Tolerating Diet, Ambulating, Urinating. Denies: New Symptoms - Review of Systems General: Reports: No Symptoms. Denies: Fever, Weakness HEENT: Reports: No Symptoms Pulmonary: Reports: No Symptoms. Denies: Shortness of Breath Cardiovascular: Reports: No Symptoms. Denies: Chest Pain, Palpitations, Dyspnea on Exertion Gastrointestinal: Reports: No Symptoms. Denies: Abdominal Pain, Nausea, Vomiting Genitourinary: Reports: No Symptoms Musculoskeletal: Reports: No Symptoms. Denies: Neck Pain, Back Pain Skin: Reports: No Symptoms. Denies: Bruising Neurological: Reports: No Symptoms. Denies: Confusion, Dizziness, Headache, Numbness, Tingling - Patient Data Vitals - Most Recent: Last Vital Signs Temp 36.6 C 10/08/19 12:00 Pulse 96 10/08/19 12:00 Resp 16 10/08/19 12:00 BP 113/74 10/08/19 12:00 Pulse Ox 97 10/08/19 12:00 Weight - Most Recent: 95.254 kg I&O - Last 24 Hours: Intake & Output 10/07/19 10/08/19 10/08/19 22:59 06:59 14:59 Intake Total 900 1200 Output Total 1100 850 Balance -200 350 Lab Results Last 24 Hours: Laboratory Results - last 24 hr 10/08/19 10/08/19 10/08/19 Range/Units 07:10 07:10 07:10 WBC 7.0 (5.0-10.0) 10^3/uL RBC 3.57 L (4.00-5.50) 10^6/uL Hgb 12.0 (12.0-16.0) g/dL Hct 35.9 L (37.0-47.0) % MCV 100.6 H (82.0-94.0) fL MCH 33.6 H (27.0-32.0) pg MCHC 33.4 (33.0-38.0) g/dL RDW Coeff of Viky 13.6 (11.0-15.0) % Plt Count 332 (150-400) 10^3/uL Neut % (Auto) 64.4 (35-85) % Lymph % (Auto) 22.5 (10-55) % [place] % (Auto) 11.5 (0-16) % Eos % (Auto) 1.3 (0-5) % Baso % (Auto) 0.3 (0-3) % Neut # (Auto) 4.53 (1.80-7.00) 10^3/uL Lymph # (Auto) 1.58 (1.00-4.80) 10^3/uL [place] # (Auto) 0.81 H (0.00-0.80) 10^3/uL Eos # (Auto) 0.09 (0.00-0.45) 10^3/uL Baso # (Auto) 0.02 10^3/uL PT 49.8 H (9.7-12.3) SEC INR 5.01 H* (0.92-1.18) Sodium 136 (136-145) mEq/L Potassium 4.1 (3.5-5.0) mEq/L Chloride 100 (98-106) mEq/L Carbon Dioxide 25 (21-32) mmol/L BUN 57 H (7-18) mg/dL Creatinine 1.8 H (0.6-1.0) mg/dL Est Cr Clr Drug Dosing 26.06 mL/min Estimated GFR (MDRD) 28 L (>=60) mL/min Glucose 106 H (75-99) mg/dL Calcium 9.0 (8.4-10.1) mg/dL Med Orders - Current: Current Medications Acetaminophen (Tylenol) 650 mg PO Q4H PRN PRN Reason: Pain (Mild 1-3)/fever Acetaminophen (Tylenol Extra Strength) 1,000 mg PO BID [facility] Last Admin: 10/08/19 07:57 Dose: 1,000 mg Aspirin (Halfprin) 81 mg PO DAILY [facility] Last Admin: 10/08/19 07:58 Dose: 81 mg Bisacodyl (Dulcolax) 5 mg PO DAILY PRN PRN Reason: Constipation Last Admin: 10/05/19 13:50 Dose: 5 mg Cholecalciferol (Vitamin D3) 125 mcg PO DAILY [facility] Last Admin: 10/08/19 07:58 Dose: 125 mcg Citalopram Hydrobromide (Celexa) 40 mg PO DAILY [facility] Last Admin: 10/08/19 07:57 Dose: 40 mg Ferrous Sulfate (Ferrous Sulfate) 324 mg PO DAILY [facility] Last Admin: 10/08/19 07:57 Dose: 324 mg Furosemide (Lasix) 40 mg IVPUSH Q24H [facility] Last Admin: 10/08/19 08:00 Dose: 40 mg Levothyroxine Sodium (Synthroid) 200 mcg PO DAILY [facility] Last Admin: 10/08/19 07:57 Dose: 200 mcg Lisinopril (Prinivil) 20 mg PO DAILY [facility] Last Admin: 10/06/19 12:38 Dose: Not Given Magnesium Oxide (Magnesium Oxide) 500 mg PO DAILY [facility] Last Admin: 10/08/19 07:57 Dose: 500 mg Metoprolol Tartrate (Lopressor) 12.5 mg PO BID [facility] Last Admin: 10/08/19 07:58 Dose: 12.5 mg Multivitamins/Minerals/Vitamin C (Tab-A-Yarely) 1 tab PO DAILY [facility] Last Admin: 10/08/19 07:58 Dose: 1 tab Nystatin (Nystatin Crm) 0 gm TOP BID [facility] Last Admin: 10/08/19 11:20 Dose: 1 applic Ondansetron HCl (Zofran Odt) 4 mg PO Q4H PRN PRN Reason: nausea, able to take PO Ondansetron HCl (Zofran) 4 mg IV Q4H PRN PRN Reason: Nausea/Vomiting Simvastatin (Zocor) 10 mg PO DAILY [facility] Last Admin: 10/08/19 07:57 Dose: 10 mg Sodium Chloride (Saline Flush) 10 ml FLUSH ASDIRECTED PRN PRN Reason: Keep Vein Open Warfarin Sodium (Coumadin) 7.5 mg PO DAILY [facility] Last Admin: 10/05/19 08:31 Dose: Not Given Discontinued Medications Furosemide (Lasix) 40 mg IVPUSH ONETIME ONE Stop: 10/04/19 01:06 Last Admin: 10/04/19 01:46 Dose: 40 mg Furosemide (Lasix) 40 mg IVPUSH BID [facility] Last Admin: 10/04/19 08:14 Dose: 40 mg Furosemide (Lasix) 40 mg IVPUSH BIDDIURETIC [facility] Last Admin: 10/06/19 08:48 Dose: 40 mg Magnesium Hydroxide (Milk Of Magnesia) 30 ml PO ONETIME ONE Stop: 10/06/19 12:58 Last Admin: 10/06/19 17:23 Dose: Not Given Magnesium Hydroxide (Milk Of Magnesia) 30 ml PO ONETIME ONE Stop: 10/06/19 17:16 Last Admin: 10/06/19 17:26 Dose: 30 ml - Exam General: Alert, Oriented, Cooperative Neck: Supple Lungs: Clear to Auscultation, Normal Respiratory Effort Cardiovascular: Regular Rate, Murmurs GI/Abdominal Exam: Soft, Non-Tender Back Exam: Normal Inspection, Full Range of Motion Extremities: Normal Inspection, Normal Range of Motion, Non-Tender, Normal Capillary Refill, Pedal Edema. No: Redness Peripheral Pulses: 2+: Radial (L), Radial (R) Skin: Warm, Dry, Intact Neurological: No New Focal Deficit Psy/Mental Status: Alert, Normal Affect, Normal Mood Sepsis Event Note - Evaluation Sepsis Screening Result: No Definite Risk - Focused Exam Vital Signs: Vital Signs Temp Pulse Pulse Resp BP BP Pulse Ox 10/08/19 12:00 36.6 C 96 16 113/74 97 10/08/19 08:00 36.4 C 99 20 109/72 94 L 10/08/19 07:58 99 109/72 10/08/19 04:00 36.1 C 98 18 100/69 96 Date Exam was Performed: 10/08/19 Time Exam was Performed: 12:59 - Problem List & Annotations (1) Congestive heart failure SNOMED Code(s): 53735372 Code(s): I50.9 - HEART FAILURE, UNSPECIFIED Status: Acute Priority: High Current Visit: Yes Qualifiers: Heart failure type: systolic Heart failure chronicity: acute on chronic Qualified Code(s): I50.23 - Acute on chronic systolic (congestive) heart failure Annotation/Comment:: Acute on chronic systolic heart failure, class II (2) Anticoagulation goal of INR 2.5 to 3.5 SNOMED Code(s): 15655348 Code(s): Z51.81 - ENCOUNTER FOR THERAPEUTIC DRUG LEVEL MONITORING; 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 The concern is she might not follow up for repeat INR as would be needed and she will become subtherapeutic causing problems or not improving and developing bleeding. So, a repeat INR will be had in am and hopefully be able to dc pt with home health assessment and follow up for compliance and adjustment to tx plan as needed.
[2019-10-09] MEDS: Metoprolol Tartrate 25 MG Tab PO SCH (08:16)
[2019-10-09] MEDS: Levothyroxine 100 MCG Tab PO SCH (08:17)
[2019-10-09] MEDS: Simvastatin 10 MG Tab PO SCH (08:18)
[2019-10-09] MEDS: Cholecalciferol (Vitamin D3) 25 MCG Tab PO SCH (08:18)
[2019-10-09] MEDS: Nystatin Crm 30 GM Tube TOP SCH (08:19)
[2019-10-09] MEDS: Citalopram 10 MG Tab PO SCH (08:19)
[2019-10-09] MEDS: Aspirin 81 MG Tab.EC PO SCH (08:19)
[2019-10-09] MEDS: Acetaminophen 500 MG Tab PO SCH (08:19)
[2019-10-09] MEDS: Multivitamin Tab PO SCH (08:19)
[2019-10-09 08:20] VITALS: BP 111/78; PULSE 114
[2019-10-09] MEDS: Ferrous Sulfate 324 MG Tab.EC PO SCH (08:20)
[2019-10-09] MEDS: Furosemide 40 MG/4 ML VIAL IVPUSH SCH (08:20)
--- NOTE | 2019-10-09 16:38 | DISCH ---
ADMISSION DIAGNOSES: 1. Acute exacerbation of chronic systolic congestive heart failure. 2. Supratherapeutic INR. 3. Chronic renal insufficiency. 4. Palliative cares. DISCHARGE DIAGNOSIS: 1. ACUTE EXACERBATION OF CHRONIC SYSTOLIC CONGESTIVE HEART FAILURE. 2. SUPRATHERAPEUTIC INR. 3. CHRONIC RENAL INSUFFICIENCY. 4. PALLIATIVE CARES. HISTORY: The patient is a 74-year-old usually seen by Dina Benjamin. She came in for increased shortness of breath and signs of heart failure. BNP was over 30,000 and chest x-ray confirmed cardiomegaly with vascular congestion. Danay ultimately was admitted for diuresis. At the time of her admission, her creatinine was around 2, which is I believe her baseline. She did not want anything aggressive done and palliative care order was provided. At the time of her admission, her INR was close to 7 and her Coumadin was held. HOSPITAL COURSE: The patient did well while here. She was given IV Lasix and diuresed nicely initially twice a day, now for the last few days just once a day. Her INR is still supratherapeutic. She reached a sohail of 8. She is down to 4 this morning. We will continue to hold that. The patient will have followup in the next few days for recheck. I believe she is down about 5 or 6 pounds. Her breathing is better. She is saturating in the mid 90s on room air. She has been up and ambulating and overall doing better. Electrolytes remained stable. Last renal function yesterday was at 1.8. The patient will be discharged home with low-dose Toprol which was a new medication for her and we changed her Lasix from 80 in the morning to 60 b.i.d. Will have followup lab and imaging on when we see her in recheck. COMPLICATIONS: During her stay, none. CONSULTATIONS: None. DISPOSITION: Discharged home. YESSENIA/EDGAR /[id number]
== END 2019-10-09 10:15 | disposition home or self-care (01) | DRG 291 ==
LOC: CC.ED 23:14 → CC.MS 10-04 00:32 → UNDOADMIN 10-04 00:49
PROVIDERS: ADMIT Physician Assistant Medical; ATTEND Family Medicine
DX: I11.0 Hypertensive heart disease with heart failure (principal); I13.0 Hypertensive heart and chronic kidney disease with heart failure and stage 1 through stage 4 chronic kidney disease, or unspecified chronic kidney disease; I50.23 Acute on chronic systolic (congestive) heart failure; R79.1 Abnormal coagulation profile; N18.9 Chronic kidney disease, unspecified; Z51.5 Encounter for palliative care; I48.91 Unspecified atrial fibrillation; E78.00 Pure hypercholesterolemia, unspecified; J45.909 Unspecified asthma, uncomplicated; K59.09 Other constipation; K21.9 Gastro-esophageal reflux disease without esophagitis; M19.90 Unspecified osteoarthritis, unspecified site; M10.9 Gout, unspecified; M06.9 Rheumatoid arthritis, unspecified; E11.9 Type 2 diabetes mellitus without complications; F32.9 Major depressive disorder, single episode, unspecified; Z85.41 Personal history of malignant neoplasm of cervix uteri; E11.22 Type 2 diabetes mellitus with diabetic chronic kidney disease; E55.9 Vitamin D deficiency, unspecified; Z96.641 Presence of right artificial hip joint; Z88.1 Allergy status to other antibiotic agents; Z79.82 Long term (current) use of aspirin; E89.0 Postprocedural hypothyroidism; Z88.8 Allergy status to other drugs, medicaments and biological substances; Z79.899 Other long term (current) drug therapy; Z79.890 Hormone replacement therapy; Z79.01 Long term (current) use of anticoagulants; Z95.1 Presence of aortocoronary bypass graft; Z95.0 Presence of cardiac pacemaker; Z95.2 Presence of prosthetic heart valve; Z85.850 Personal history of malignant neoplasm of thyroid; Z98.49 Cataract extraction status, unspecified eye; Z90.49 Acquired absence of other specified parts of digestive tract; Z90.710 Acquired absence of both cervix and uterus
CPT/HCPCS: 36415; 71046; 80048; 80053; 83880; 85025; 85379; 85610; 86140; 93005; 93010; 99285-25; A9270-GY; J1940